=== PATIENT | female | born 1950 | race African-American/Black ===

== ENCOUNTER → 2016-08-20 | Outpatient (CLI) | payer OTHER ==
[2015-08-04 11:21] VITALS: BP 142/46
[~2016-08-20] MED LIST: CYCL10TA2 PO; HYDR-2762 PO; MELO-150 PO; VALS40TA2 PO
--- NOTE | 2016-08-20 23:50 | PN ---
DATE: 08/20/2016 Progress note for pain clinic. DIAGNOSES: Lumbar radiculopathy, lumbar spinal stenosis and lumbar spondylosis. HISTORY OF PRESENT ILLNESS: The patient is a 66-year-old female who returns for followup status post lumbar epidural steroid injections x 3, last was 05/07/2016. The patient did very well with about 60% improvement. Overall, the pain is returning now in the low back and right lower extremity as it was previously. She reports difficult to stand for long periods of time greater than 20-30 minutes, worse with ambulation, standing, walking, has to sit down, when the pain is at its worse and does relieve the pain fairly quickly within few minutes. The patient reports she has been sleeping okay, but awakens occasionally. She recently had a sore throat and cold and reports that she has had a fever every night for the past 3 days and is seeing her primary care physician later today to see about some antibiotics. The patient reports otherwise doing fairly well, significant pain in the right leg, mostly in the posterior aspect of the lateral thigh, posterior thigh, posterior lower leg, lateral lower leg to the ankle with cramping as well. The patient reports no new motor or sensory deficits, no new bowel or bladder incontinence or other complaints. PHYSICAL EXAMINATION: VITAL SIGNS: The patient's blood pressure is 138/78, pulse 70, respirations 18, temperature is 98.1 degrees Fahrenheit, height is 5 feet 8 inches, weighs 185 pounds. GENERAL: The patient is awake, alert, oriented, appropriate, very pleasant demeanor. HEENT: Head shows normocephalic, atraumatic. Extraocular movements are intact and symmetrical. Oral cavity, mucous membranes are moist and pink. Dentition is intact. NECK: Shows anterior throat supple without palpable lymphadenopathy noted. Swallow reflex is symmetrical. NECK: Shows full rotational motion of the cervical spine without tenderness or difficulty. The patient's back shows spine grossly midline. Normal appearing thoracic kyphosis and lumbar lordotic curvature. Lumbar paraspinous muscle shows some prlr-su-ivdnsxyh tenderness with palpation, but only diffusely throughout the lumbar distribution bilaterally in the mid and lower lumbar distribution. No tenderness over the sacrum or sacroiliac regions. The patient shows good rotation and motion of lumbar spine laterally as well as extension and flexion. EXTREMITIES: Lower extremities show deep tendon reflexes 2+ in the patellar and tendo calcaneus tendons are 1+. Motor exam is strong with 5/5 dorsiflexion, extension and equal. Options were discussed with the patient. We will hold on any further injections at this time as the patient has had some febrile episodes for the past 3 days. We will have her follow up with her primary care physician as she is scheduled later today ____ so once she is afebrile and is treated with antibiotics if necessary. We will have her return for potential lumbar epidural steroid injection at that time. Also, we will try Medrol Dosepak, in the meantime, the patient was given instruction as well as side effects to be aware with medication and will follow up approximately one week. NIGHAT CROWLEY MD DR: RONAL/fernanda JOB#: [id number] / [id number]
== END | disposition home or self-care (01) ==
LOC: PNCL 10:03
PROVIDERS: ATTEND Anesthesiology
DX: M54.16 Radiculopathy, lumbar region (principal); M48.06 Spinal stenosis, lumbar region; M47.896 Other spondylosis, lumbar region
CPT/HCPCS: 99212

== ENCOUNTER → 2016-09-03 | Outpatient (CLI) | payer MEDICARE, OTHER ==
[2015-08-04 11:21] VITALS: BP 142/46
--- NOTE | 2016-09-03 12:31 | KCIC ---
Bilateral digital screening mammograms with CAD: HISTORY Routine screening. COMPARISON Comparison is made to previous study dated 08/22/2014. FINDINGS Breast density category B. The skin and nipples show no abnormalities. No abnormal lymph nodes are seen in the axilla. The breast parenchyma shows scattered fibroglandular density. There continues to be some asymmetric density on the right which is unchanged. There are no new dominant masses, suspicious calcifications or architectural distortions. IMPRESSION No evidence of malignancy. Recommend routine annual mammographic screening. This study was interpreted with the benefit of Computerized Aided Detection (CAD). Mammography is not 100% sensitive in detecting breast cancer. Therefore, a self breast exam and a clinical breast exam are very important. A negative mammogram does not negate a clinically suspicious finding and should not result in a delay in biopsying a clinically suspicious abnormality. BI-RADS category 2: Benign. This patient's information has been entered into a reminder system for the patient to be notified with the results of this examination and a target date for her next mammograms. Electronically signed by: Lisa Montague MD (Sep 03, 2016 12:29:58)
--- NOTE | 2016-09-03 12:52 | KCIC ---
PROCEDURE MR of the right shoulder HISTORY Right shoulder pain for about 3 months. TECHNIQUE Standard routine multiplanar sequences are obtained. COMPARISON FINDINGS The acromioclavicular joint is degenerative, with small undersurface osteophytes. Evidence of prior rotator cuff repair with humeral head screws. There is diffuse heterogeneity and thinning of the rotator cuff, may be related to the affects of surgery of the nature of reattachment. There is no evidence of a measurable through and through full-thickness recurrent rupture. Subscapularis tendinosis with mild partial tearing. Mild rotator cuff muscle volume loss with mild to moderate fatty infiltration. Small glenohumeral joint effusion. Moderate glenohumeral joint chondromalacia. The mild subchondral marrow edema appears reactive. The proximal biceps tendon is poorly visualized. No evidence of a bone lesion or acute fracture. No acute soft tissue injury. Degeneration and tearing of the entire labrum. IMPRESSION 1. Diffuse rotator cuff thinning and irregularity, but no evidence of a recurrent through and through supraspinatus or infraspinatus tendon rupture. Subscapularis tendinosis with mild partial tearing. 2. Moderate primary osteoarthritis. 3. Poorly visualized biceps tendon. 4. Circumferential degenerative tearing of the labrum. Electronically signed by: Harry Mosqueda MD (Sep 03, 2016 12:51:17)
== END | disposition home or self-care (01) ==
LOC: KCIC MAMMO 10:30
PROVIDERS: ATTEND Family Medicine
DX: Z12.31 Encounter for screening mammogram for malignant neoplasm of breast (principal); S43.401A Unspecified sprain of right shoulder joint, initial encounter; W19.XXXA Unspecified fall, initial encounter; Y93.89 Activity, other specified; Y92.89 Other specified places as the place of occurrence of the external cause; Y99.8 Other external cause status; M19.011 Primary osteoarthritis, right shoulder
CPT/HCPCS: 73221; G0202; 77067

== ENCOUNTER → 2016-12-31 | Outpatient (CLI) | payer MEDICARE, OTHER ==
[2015-08-04 11:21] VITALS: BP 142/46
[~2016-12-31] MED LIST changes: -MELO-150 PO; +MELO15TA23 PO
--- NOTE | 2016-12-31 15:13 | KCIC ---
MRI brain without contrast and MRA [place] without contrast dated 12/31/2016. No comparison available. CLINICAL INDICATION: Persistent daily headaches for 3 months. Blurred vision. Hypertension. TECHNIQUE: Routine multiplanar multisequence MR imaging of brain performed without the administration of intravenous contrast. In addition, 3-D vhfb-za-gxbsar MRA [place] was acquired with 3-D rotational reconstructions. FINDINGS: Ventricles and sulci are within normal limits for age. No midline shift or mass effect. Mild spotty hyperintense FLAIR signal abnormality within the deep/subcortical periventricular white matter and left esdras. No hemorrhage or extra-axial collection. Posterior fossa and brainstem unremarkable. No evidence of restricted diffusion abnormality. Major intracranial flow-voids are present. Postcontrast imaging was not performed. There is complete opacification of the left maxillary sinus. Mild mucosal thickening of the ethmoid air cells. The visualized paranasal sinuses and mastoid air cells are otherwise clear. No apparent calvarial abnormality. Internal carotid arteries at the skull base are symmetric in size and signal. Petrous and cavernous segments are symmetric. Carotid termini and supraclinoid segments are patent. The JESSIKA and MCA branches are well formed. No stenosis or aneurysm. Intradural vertebral arteries are patent. The basilar artery is somewhat small. There is near origin of the bilateral [employer]INICAL FACULTY. No stenosis or aneurysm. Impression brain: 1. No evidence of acute intracranial hemorrhage, mass or acute infarct. 2. Mild spotty signal abnormality in the deep/subcortical periventricular white matter and left esdras, nonspecific but likely related to chronic small vessel ischemic disease. 3. Mild sinus mucosal thickening with complete opacification of the left maxillary sinus, possibly related to inspissated secretions. An intrasinus mass cannot be completely excluded. Recommend clinical correlation. Impression MRA [place]: 1. No evidence of hemodynamically significant stenosis or aneurysm. 2. Near origin of the bilateral CLINICAL FACULTY. Electronically signed by: Harry Jones MD (12/31/2016 3:09 PM) [facility]
--- NOTE | 2016-12-31 15:13 | KCIC ---
MRI brain without contrast and MRA [place] without contrast dated 12/31/2016. No comparison available. CLINICAL INDICATION: Persistent daily headaches for 3 months. Blurred vision. Hypertension. TECHNIQUE: Routine multiplanar multisequence MR imaging of brain performed without the administration of intravenous contrast. In addition, 3-D cwtc-bu-dnmqpe MRA [place] was acquired with 3-D rotational reconstructions. FINDINGS: Ventricles and sulci are within normal limits for age. No midline shift or mass effect. Mild spotty hyperintense FLAIR signal abnormality within the deep/subcortical periventricular white matter and left esdras. No hemorrhage or extra-axial collection. Posterior fossa and brainstem unremarkable. No evidence of restricted diffusion abnormality. Major intracranial flow-voids are present. Postcontrast imaging was not performed. There is complete opacification of the left maxillary sinus. Mild mucosal thickening of the ethmoid air cells. The visualized paranasal sinuses and mastoid air cells are otherwise clear. No apparent calvarial abnormality. Internal carotid arteries at the skull base are symmetric in size and signal. Petrous and cavernous segments are symmetric. Carotid termini and supraclinoid segments are patent. The JESSIKA and MCA branches are well formed. No stenosis or aneurysm. Intradural vertebral arteries are patent. The basilar artery is somewhat small. There is near origin of the bilateral [employer]. No stenosis or aneurysm. Impression brain: 1. No evidence of acute intracranial hemorrhage, mass or acute infarct. 2. Mild spotty signal abnormality in the deep/subcortical periventricular white matter and left esdras, nonspecific but likely related to chronic small vessel ischemic disease. 3. Mild sinus mucosal thickening with complete opacification of the left maxillary sinus, possibly related to inspissated secretions. An intrasinus mass cannot be completely excluded. Recommend clinical correlation. Impression MRA [place]: 1. No evidence of hemodynamically significant stenosis or aneurysm. 2. Near origin of the bilateral [employer]. Electronically signed by: Harry Jones MD (12/31/2016 3:09 PM) [facility]-KC[facility]2
== END | disposition home or self-care (01) ==
LOC: KCIC MRI 13:36
PROVIDERS: ATTEND Family Medicine
DX: H53.8 Other visual disturbances (principal); I10 Essential (primary) hypertension; R51 Headache
CPT/HCPCS: 70544; 70551

== ENCOUNTER → 2017-09-29 | Outpatient (CLI) | payer MEDICARE, OTHER | END | disposition home or self-care (01) | LOC: PNCL 10:40 | DX: M54.16 Radiculopathy, lumbar region (principal); M48.061 Spinal stenosis, lumbar region without neurogenic claudication; M47.896 Other spondylosis, lumbar region; Z87.891 Personal history of nicotine dependence | CPT/HCPCS: G0463 ==

== ENCOUNTER → 2017-10-01 | Outpatient (CLI) | payer MEDICARE, OTHER ==
[2017-10-01 12:54] LABS: ADD MAN DIFF? NO
[2017-10-01 13:02] LABS: BASO # 0.1 x10^3/uL (0.0-0.2); BASO % 1 % (0-3); EOS # 0.3 x10^3/uL (0.0-0.7); EOS % 5 % (0-3); HEMOGLOBIN 11.5 g/dL (12.0-15.5); LYMPH # 1.7 x10^3/uL (1.0-4.8); LYMPH % 32 % (24-48); MEAN CORPUSCULAR HEMOGLOBIN 29 pg (25-35); MEAN CORPUSCULAR HGB CONC 34 g/dL (31-37); MEAN CORPUSCULAR VOLUME 85 fL (79-100); MONO # 0.5 x10^3/uL (0.0-1.1); MONO % 9 % (0-9); NEUT # 2.9 x10^3uL (1.8-7.7); NEUT % 54 % (31-73); PLATELET COUNT 219 x10^3/uL (140-400); RED BLOOD COUNT 4.02 x10^6/uL (3.50-5.40); WHITE BLOOD COUNT 5.4 x10^3/uL (4.0-11.0)
[2017-10-01 13:11] LABS: ALBUMIN 3.7 g/dL (3.4-5.0); ANION GAP 8 (6-14); BLOOD UREA NITROGEN 20 mg/dL (7-20); CALCIUM 9.4 mg/dL (8.5-10.1); CARBON DIOXIDE 27 mmol/L (21-32); CHLORIDE 102 mmol/L (98-107); GFR 67.1; GLUCOSE 100 mg/dL (70-99); POTASSIUM 3.5 mmol/L (3.5-5.1); SODIUM 137 mmol/L (136-145)
[2017-10-01 13:12] LABS: PARTIAL THROMBOPLASTIN TIME 30 SEC (24-38); PROTHROMBIN TIME PATIENT 12.7 SEC (11.7-14.0)
[2017-10-01 13:39] LABS: BILIRUBIN,URINE NEGATIVE (NEG); CLARITY,URINE CLEAR; COLOR,URINE YELLOW; GLUCOSE,URINE NEGATIVE (NEG); NITRITE,URINE NEGATIVE (NEG); PROTEIN,URINE NEGATIVE (NEG-TRACE)
[2017-10-01 13:54] LABS: BACTERIA,URINE FEW /HPF (0-FEW); HYALINE CASTS, URINE FEW /HPF; RBC,URINE 0 /HPF (0-2); SQUAMOUS EPITHELIAL CELL,UR FEW /LPF
[2017-10-01 14:06] LABS: SEDIMENTATION RATE 35 (0-25)
[2017-10-01 22:17] LABS: MRSA BY PCR Negative (Negative)
== END | disposition home or self-care (01) ==
LOC: SURGPAT 12:12
DX: Z01.818 Encounter for other preprocedural examination (principal); I10 Essential (primary) hypertension; R94.31 Abnormal electrocardiogram [ECG] [EKG]; Z96.651 Presence of right artificial knee joint; Z79.01 Long term (current) use of anticoagulants
CPT/HCPCS: 36415; 71046; 80048; 81001; 82040; 82306; 85025; 85610; 85651; 85730; 87086; 87641; 93005

== ENCOUNTER → 2017-10-27 | Outpatient (CLI) | payer MEDICARE, OTHER | END | disposition home or self-care (01) | LOC: KCIC MRI 13:06 | DX: M54.16 Radiculopathy, lumbar region (principal); M48.061 Spinal stenosis, lumbar region without neurogenic claudication; M43.16 Spondylolisthesis, lumbar region | CPT/HCPCS: 72148 ==

== ENCOUNTER → 2017-12-08 | Outpatient (CLI) | payer MEDICARE, OTHER ==
[~2017-12-08] MED LIST changes: -CYCL10TA2 PO; -HYDR-2762 PO; +IOHEXOL 180 MG/ML 10 ML VIAL.; +LIDOCAINE 1% PF 2 ML VIAL.; -MELO15TA23 PO; -VALS40TA2 PO; +methylPREDNISolone ACETATE 40 MG/ML VIAL.; +methylPREDNISolone ACETATE 80 MG/ML VIAL.
== END | disposition home or self-care (01) ==
LOC: PNCL 10:03
DX: M48.061 Spinal stenosis, lumbar region without neurogenic claudication (principal); M47.26 Other spondylosis with radiculopathy, lumbar region; Z88.0 Allergy status to penicillin; E78.00 Pure hypercholesterolemia, unspecified; I10 Essential (primary) hypertension; Z90.710 Acquired absence of both cervix and uterus; Z90.79 Acquired absence of other genital organ(s); Z90.721 Acquired absence of ovaries, unilateral; M19.90 Unspecified osteoarthritis, unspecified site; Z96.652 Presence of left artificial knee joint; F32.9 Major depressive disorder, single episode, unspecified; F17.200 Nicotine dependence, unspecified, uncomplicated
CPT/HCPCS: 62323; J1030; J1040; Q9965

== ENCOUNTER → 2017-12-29 | Outpatient (CLI) | payer MEDICARE, OTHER ==
[~2017-12-29] MED LIST changes: -LIDOCAINE 1% PF 2 ML VIAL.; +LIDOCAINE 2% PF 2ML VIAL.
== END | disposition home or self-care (01) ==
LOC: PNCL 10:56
DX: M48.061 Spinal stenosis, lumbar region without neurogenic claudication (principal); M47.26 Other spondylosis with radiculopathy, lumbar region; Z88.0 Allergy status to penicillin; E78.00 Pure hypercholesterolemia, unspecified; I10 Essential (primary) hypertension; Z90.710 Acquired absence of both cervix and uterus; Z90.79 Acquired absence of other genital organ(s); Z90.721 Acquired absence of ovaries, unilateral; M19.90 Unspecified osteoarthritis, unspecified site; Z96.652 Presence of left artificial knee joint; F32.9 Major depressive disorder, single episode, unspecified; F17.200 Nicotine dependence, unspecified, uncomplicated; Z79.82 Long term (current) use of aspirin; Z79.899 Other long term (current) drug therapy
CPT/HCPCS: 62323; J1030; J1040; J2001; Q9965

== ENCOUNTER → 2019-03-22 | Outpatient (CLI) | payer MEDICAID, OTHER ==
[2015-08-04 11:21] VITALS: BP 142/46
[~2019-03-22] MED LIST changes: +ASPI-482 PO; +CYCL10TA2 PO; +HYDR-2765 PO; +HYDR12.58 PO; +IBUP-1007 PO; -IOHEXOL 180 MG/ML 10 ML VIAL.; -LIDOCAINE 2% PF 2ML VIAL.; +LISI-130 PO; +MELO15TA23 PO; +VALS40TA2 PO; +ZOLP5TAB5 PO; -methylPREDNISolone ACETATE 40 MG/ML VIAL.; -methylPREDNISolone ACETATE 80 MG/ML VIAL.
--- NOTE | 2019-03-22 16:07 | KCIC ---
Bilateral digital screening mammograms: Reason for examination: Routine screening. Comparison is made to previous studies dated 09/03/2016 and 08/22/2014. Interpretation was made with the benefit of CAD. The skin and nipples show no abnormalities. No abnormal axillary lymph nodes are seen. The breast parenchyma shows scattered fibroglandular density. (Breast density: Category B.) There are no dominant masses, suspicious calcifications or architectural distortions. Some benign calcifications are present. Impression: No evidence of malignancy. Recommend routine screening. BI-RADS category 2: Benign "Our facility is accredited by the [employer] Mammography Program." This patient's information has been entered into a reminder system for the patient to be notified with the results of her examination and a target date for the next mammogram. Electronically signed by: Binta Montague MD (03/22/2019 4:04 PM) [facility]
== END | disposition home or self-care (01) ==
LOC: KCIC MAMMO 15:13
PROVIDERS: ATTEND Family Medicine
DX: Z12.31 Encounter for screening mammogram for malignant neoplasm of breast (principal); N64.89 Other specified disorders of breast
CPT/HCPCS: 77067

== ENCOUNTER → 2019-06-09 | Day surgery (SDC) | payer OTHER, MEDICAID ==
[~2019-06-09] MED LIST changes: +HYDR-2868 PO; +IV RINGERS,LACTATED 1000ML 1,000 ML IV ONE; +IV RINGERS,LACTATED 1000ML 1,000 ML IV SCH; +LIDOCAINE 2% PF 5 ML VIAL. ONE; +PANT40TA77 PO; +PROPOFOL 20 ML IV ONE; +PROPOFOL 40 ML IV ONE
[2019-06-09 10:32] VITALS: BP 127/85
--- NOTE | 2019-06-09 10:43 | PREOP HP ---
DATE OF SERVICE: 06/09/2019 REQUESTING PHYSICIAN: Niya Mendieta MD PRIMARY CARE PHYSICIAN: Niya Mendieta MD REASON FOR PROCEDURE: Colorectal cancer screening and anemia. HISTORY OF PRESENT ILLNESS: This is a 68-year-old female, who presents for colorectal cancer screening. She also has a history of anemia. ALLERGIES: PENICILLIN. PAST MEDICAL HISTORY: Anxiety, reflux, breast cancer, depression. FAMILY MEDICAL HISTORY: No colon cancer. MEDICATIONS: MAR reviewed. SOCIAL HISTORY: She denies tobacco, alcohol or IV drug abuse. REVIEW OF SYSTEMS: A 13-point review of systems was done. It is positive as per HPI and otherwise negative. PHYSICAL EXAMINATION: GENERAL: She is afebrile. She is in a sinus arrhythmia that was evaluated with by a 12-lead EKG, that did not demonstrate any evidence of AFib. In general, she is a well-developed, well-nourished -[place] female, in no apparent distress. HEENT: Oropharynx is clear. CARDIOVASCULAR: S1, S2. LUNGS: Clear. ABDOMEN: Normoactive bowel sounds, soft, nontender, nondistended. EXTREMITIES: No edema. NEUROLOGIC: Awake, alert and oriented x 3. ASSESSMENT AND PLAN: 1. Colorectal cancer screening. The risks and benefits of the colonoscopy have been explained, she has agreed to proceed. 2. Reflux. An upper endoscopy for further evaluation. Thank you for allowing me to participate in the care of this patient. HERSON WOMACK MD DR: ZENAIDA/fernanda JOB#: [id number] / [id number]
--- NOTE | 2019-06-09 20:53 | EKG ---
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
--- NOTE | 2019-06-10 12:06 | PATHOLOGY ---
[facility] Accession Number: [id number] . 01 Material submitted: . PART A: small bowel - SMALL BOWEL BIOPSY PART B: stomach - GASTRIC ANTRUM/BODY BIOPSY. Modifiers: body PART C: esophagus - DISTAL ESOPHAGUS BIOPSY. Modifiers: distal PART D: colon - TRANSVERSE COLON POLYP BIOPSY. Modifiers: transverse PART E: colon - SIGMOID COLON POLYP BIOPSY. Modifiers: sigmoid . 01 Clinical history: . GERD, CRC screen . 02 Diagnosis: A. Small bowel biopsies: - No significant pathologic abnormalities. . B. Gastric biopsies, gastric body and antrum: - Chronic gastritis, mild. . C. Esophageal biopsies, distal esophagus: - Segments of gastric mucosa showing chronic inflammation and single segment of squamous esophageal mucosa identified. . D. Colon biopsies, transverse colon polyp: - Prominent mucosal fold. . E. Colon biopsies, sigmoid colon polyps: - Tubular adenoma (1). - Hyperplastic polyps. . (JPM:mmdebbi; 06/10/2019) [facility] 06/10/2019 1119 Local . 02 Comment: Sections of the small bowel biopsy reveal segments of duodenal mucosa. Where best oriented, mucosal villi show no sprue-like changes or significant inflammatory changes. . Sections of the gastric biopsy reveal segments of gastric antral and gastric body mucosa showing congestion and very mild chronic inflammation. A properly-controlled immunoperoxidase stain for Helicobacter is negative for Helicobacter organisms. . Sections of the distal esophageal biopsy reveal three segments of gastric mucosa showing mild to moderate chronic inflammation and a single segment of squamous esophageal mucosa. There is no evidence of Tobias's change, dysplasia or malignancy. . Sections of the transverse colon biopsy reveal segments of colonic mucosa consistent with prominent mucosal fold. There are no adenomatous changes or evidence of malignancy. . Sections of the sigmoid colon biopsy reveal a single tubular adenoma and multiple hyperplastic polyps. There is no high grade dysplasia or evidence of malignancy. . Special stains (B1): Immunoperoxidase stain for Helicobacter . (JPM:mml; 06/10/2019) . 02 Electronically signed: . Erlin Pappas MD, Pathologist NPI- [id number] . 01 Gross description: . A. Received in formalin labeled "Roshan, Juliann, small bowel," and additionally labeled on the requisition as "BX," are 4 segments of rodrigues soft tissue measuring 1.0 x 0.6 x 0.2 cm in aggregate dimensions and ranging from 0.4 to 0.7 cm in maximum dimension. The specimen is submitted entirely in cassette A1. . B. Received in formalin labeled "Roshan, Juliann, gastric antrum/body," and additionally labeled on the requisition as "BX," are 3 segments of rodrigues soft tissue measuring 0.9 x 0.6 x 0.3 cm in aggregate dimensions and ranging from 0.4 to 0.5 cm in maximum dimension. The specimen is submitted entirely in cassette B1. . C. Received in formalin labeled "Roshan, Juliann, distal esophagus BX," are 3 segments of rodrigues soft tissue measuring 0.6 x 0.6 x 0.2 cm in aggregate dimensions and ranging from 0.3 to 0.6 cm in maximum dimension. The specimen is submitted entirely in cassette C1. . D. Received in formalin labeled "Roshan, Juliann, transverse colon polyp," and additionally labeled on the requisition as "polyp BX," are 2 segments of rodrigues soft tissue measuring 0.8 x 0.2 x 0.2 cm in aggregate dimensions and measuring 0.4 cm each in maximum dimension. The specimen is submitted entirely in cassette D1. . E. Received in formalin labeled "Roshan, Juliann, sigmoid polyp," and additionally labeled on the requisition as "colon BX," are 9 segments of rodrigues soft tissue measuring 1.5 x 1.3 x 0.2 cm in aggregate dimensions and ranging from 0.3 to 0.4 cm in maximum dimension. The specimen is submitted entirely in cassette E1. (TSD; 06/09/2019) TOB/TOB 06/10/2019 0941 Local . 02 Pathologist provided ICD-10: K29.50, K20.9, D12.5, K63.5, K21.9 . 02 CPT . 748354, 196845, 684643, 364224, 169815, [id number] Specimen Comment: A courtesy copy of this report has been sent to [phone], [phone] Specimen Comment: [id number] Specimen Comment: Report sent to / DR CALVILLO Performed at: 01 [facility] [address] [place] [address] [address], [place] [id number] MD Aleksandar Horner MD Phone: [phone] Performed at: 02 [facility] [address] [place], [place] [id number] MD Erlin Pappas MD Phone: [phone]
== END | disposition home or self-care (01) ==
LOC: ENDOS 08:44
PROVIDERS: ATTEND Internal Medicine Gastroenterology
DX: Z12.11 Encounter for screening for malignant neoplasm of colon (principal); D12.5 Benign neoplasm of sigmoid colon; K21.0 Gastro-esophageal reflux disease with esophagitis; K29.50 Unspecified chronic gastritis without bleeding; F41.9 Anxiety disorder, unspecified; F32.9 Major depressive disorder, single episode, unspecified; D64.9 Anemia, unspecified; Z88.0 Allergy status to penicillin; Z85.3 Personal history of malignant neoplasm of breast; Z98.890 Other specified postprocedural states
CPT/HCPCS: 43239; 45380; 88305; 88342; 93005; J2001; J2704; 45378

== ENCOUNTER → 2019-11-29 | Outpatient (CLI) | payer OTHER, MEDICAID ==
[2019-06-09 10:32] VITALS: BP 127/85
[~2019-11-29] MED LIST changes: +AMLO10TA8 PO; +HYDR-2165 PO; -IV RINGERS,LACTATED 1000ML 1,000 ML IV ONE; -IV RINGERS,LACTATED 1000ML 1,000 ML IV SCH; -LIDOCAINE 2% PF 5 ML VIAL. ONE; -PROPOFOL 20 ML IV ONE; -PROPOFOL 40 ML IV ONE
[2019-11-29 14:50] LABS: BASO % 1 % (0-3); EOS # 0.2 x10^3/uL (0.0-0.7); EOS % 4 % (0-3); HEMATOCRIT 35.4 % (36.0-47.0); LYMPH # 1.3 x10^3/uL (1.0-4.8); LYMPH % 29 % (24-48); MEAN CORPUSCULAR HEMOGLOBIN 31 pg (25-35); MEAN CORPUSCULAR HGB CONC 34 g/dL (31-37); MEAN CORPUSCULAR VOLUME 91 fL (79-100); MONO # 0.4 x10^3/uL (0.0-1.1); MONO % 9 % (0-9); NEUT # 2.7 x10^3/uL (1.8-7.7); NEUT % 58 % (31-73); PLATELET COUNT 212 x10^3/uL (140-400); RED BLOOD COUNT 3.91 x10^6/uL (3.50-5.40); WHITE BLOOD COUNT 4.6 x10^3/uL (4.0-11.0)
[2019-11-29 14:58] LABS: PROTHROMBIN TIME PATIENT 12.5 SEC (11.7-14.0)
--- NOTE | 2019-11-29 17:29 | RAD ---
Chest radiograph 11/29/2019 1:49 PM INDICATION: Preoperative, right total knee arthroplasty COMPARISON: None available TECHNIQUE: Frontal and lateral views of the chest are provided. FINDINGS: The cardiomediastinal silhouette is within normal limits. There are no pleural effusions. There is no pulmonary vascular congestion. There is no pneumothorax. Atherosclerotic changes of the aorta are present. The lungs are clear. No significant osseous abnormality is identified. IMPRESSION: No acute cardiopulmonary process. Electronically signed by: Thelma Dent MD (11/29/2019 5:26 PM) [id number]
[2019-11-30 02:08] LABS: HEMOGLOBIN A1C 4.8 % (4.8-5.6)
== END ==
LOC: SURGPAT 13:34
PROVIDERS: ATTEND Orthopaedic Surgery
DX: Z01.818 Encounter for other preprocedural examination (principal); M17.11 Unilateral primary osteoarthritis, right knee
CPT/HCPCS: 36415; 71046; 83036; 85025; 85610; 85730; 87641

== ENCOUNTER → 2019-12-01 | Outpatient (CLI) | payer OTHER, MEDICAID ==
[2019-06-09 10:32] VITALS: BP 127/85
[~2019-12-01] MED LIST changes: +0.92DISP2 IV; +ASCO500T4 PO; +ASPI-630 PO; +ASPI325T11 PO; +CALC200T23 PO; +CELE200C PO; +DAPT350V IV; +DICL75TA PO; +DOCU-153 PO; +DOXY100T PO; +HYDR-2767 PO; +HYDR-2769 PO; +LACT1CAP19 PO; +MERO1VIA24 IV; +METO50TA6 PO; +MULT1TAB90 PO; +OXYC1TAB15 PO; +PANT40TA6 PO; +POLY17PO28 PO
[2019-12-01 16:02] LABS: ALBUMIN 3.7 g/dL (3.4-5.0); C-REACTIVE PROTEIN 3.3 mg/L (0-3.3); CALCIUM 8.6 mg/dL (8.5-10.1); CREATININE 0.8 mg/dL (0.6-1.0); GFR 86.3; POTASSIUM 3.6 mmol/L (3.5-5.1)
== END | disposition home or self-care (01) ==
LOC: LAB 13:59
PROVIDERS: ATTEND Orthopaedic Surgery
DX: M17.11 Unilateral primary osteoarthritis, right knee (principal); Z88.0 Allergy status to penicillin; Z88.8 Allergy status to other drugs, medicaments and biological substances
CPT/HCPCS: 36415; 80048; 82040; 82306; 86140

== ENCOUNTER → 2019-12-07 | Outpatient (CLI) | payer OTHER, MEDICAID ==
[2019-06-09 10:32] VITALS: BP 127/85
[~2019-12-07] MED LIST changes: -0.92DISP2 IV; -ASCO500T4 PO; -ASPI-630 PO; -ASPI325T11 PO; -CALC200T23 PO; -CELE200C PO; -DAPT350V IV; -DICL75TA PO; -DOCU-153 PO; -DOXY100T PO; -HYDR-2767 PO; -HYDR-2769 PO; -LACT1CAP19 PO; -MERO1VIA24 IV; -METO50TA6 PO; -MULT1TAB90 PO; -OXYC1TAB15 PO; -PANT40TA6 PO; -POLY17PO28 PO; +REGADENOSON 0.4 MG/5 ML DISP.SYRIN. IV ONE
--- NOTE | 2019-12-07 17:40 | RAD ---
MR#: [id number] Date of Study: 12/07/2019 Ordering Physician: SAMARA RIVAS, Referring Physician: MORGAN HUGHES Tech: RT Li (R) (N) APPROVED REPORT Test Type: Pharmacological Stress Nurse/Tech: Adeola Zavala RN Test Indications: Pre-op Knee surgery Cardiac History: Hypertension, stopped smoking 08/2019 Medications: See Electronic Medical Record Medical History: 75 Resting ECG: SR with PACs with inverted T waves, ST elevation in V1 & V2. Resting Heart Rate: 75 bpm Resting Blood Pressure: 145/75mmHg Pretest Chest Pain: No chest pain Nurse/Tech Notes S1S2, Lungs CTA Pharm. Details Pharmacologic stress testing was performed using 0.4mg per 5ml of regadenoson given intravenously ove r 7-10 seconds. Stress Symptoms Dyspnea, Cheat heaviness 3/10 resolved by end of test. POST EXERCISE Reason for Termination: Infusion complete Max HR: 106 bpm Max Blood Pressure: 142/78mmHg Blood Pressure response to exercise: Normal blood pressure response during stress. Heart Rate response to exercise: WNL Chest Pain: Yes. Heaviness 3/10, resolved by end of test. Arrhythmia: No. ST Change: Yes. Non-specific INTERPRETATION Stress EKG Conclusion: No significant EKG changes to suggest ischemia. Imaging Protocol IMAGE PROTOCOL: Rest Tc-99m/stress Tc-99m 1 day Rest: Stress: Viability: Radiopharm.Tc99m WtkxnheluZb61x Sestamibi Qznk89oAi 31.2mCi Duration 13min. 13min. Img Date 12/07/2019 12/07/2019 Inj-Img Bbrx21hgp. 60min. Rest Admin Site:IV - Right AntecubitalAdministrator:RT Bernardo (R)(N) Stress Admin Site: IV - Right AntecubitalAdministrator: RT Li (R)(N) STRESS DATA End Diast. Vol.115.0mlLVEDV index BSA59.0ml End Syst. Vol.66.0mlLVESV index BSA34.0ml Myocardial Wrrn715.0gEject. Yhyybztq35.0% Stress Scores Regional WT3.00Summed WT24.00 Regional WM0.00Summed WM15.00 LV Perfusion Normal perfusion at stress/rest. Wall Motion Mild to moderate LV dysfunction. EF 43%. LV Perf. Quant 17 Seg. SSS0.00 17 Seg. SRS2.00 17 Seg. SDS0.00 Stress Defect Extent (% LAD)0.00Rest Defect Extent (% LAD)3.10Rev. Defect Extent (% LAD)0.00 Stress Defect Extent (% LCX) 0.00Rest Defect Extent (% LCX)7.50Rev. Defect Extent (% LCX)0.00 Stress Defect Extent (% RCA)0.00Rest Defect Extent (% RCA)3.30Rev. Defect Extent (% RCA)0.00 Stress Defect Extent (% MADI)0.00Rest Defect Extent (% MADI)3.90Rev. Defect Extent (% MADI)0.00 Other Information Quality:Average Risk Assessment: Moderate Risk Conclusion 1. Abnormal resting baseline EKG due to LVH. 2. No significant ischemia on EKG at stress. 3. Normal perfusion at stress/rest. 4. Mild to moderate LV dysfunction with global hypokinesis with EF of 43%, may be related to PAC's an d insufficient gating. 5. Moderate risk study 6. Motion artifact Recommendations Consider echocardiogram for correlation of EF. Signed by : Erik Odonnell, Electronically Approved : 12/07/2019 17:39:50
== END | disposition home or self-care (01) ==
LOC: NM 10:01
PROVIDERS: ATTEND Internal Medicine Cardiovascular Disease
DX: Z01.818 Encounter for other preprocedural examination (principal); I10 Essential (primary) hypertension; Z87.891 Personal history of nicotine dependence
CPT/HCPCS: 78452; 93017; A9500; J2785

== ENCOUNTER → 2019-12-09 | Outpatient (CLI) | payer OTHER, MEDICAID ==
[2019-06-09 10:32] VITALS: BP 127/85
[~2019-12-09] MED LIST changes: -REGADENOSON 0.4 MG/5 ML DISP.SYRIN. IV ONE
== END | disposition home or self-care (01) ==
LOC: LAB 14:56
PROVIDERS: ATTEND Orthopaedic Surgery
DX: Z11.59 Encounter for screening for other viral diseases (principal)
CPT/HCPCS: U0003-CS

== ENCOUNTER 2019-12-13 08:19 | Inpatient (IN) | payer OTHER, MEDICAID ==
--- NOTE | 2019-12-12 21:19 | PDOC1 ---
History and Physical Date of Admission Date of Admission DATE: 12/12/19 TIME: 21:08 Identification/Chief Complaint Chief Complaint Right knee pain Source Source: Chart review History of Present Illness History of Present Illness Juliann has right knee osteoarthritis and is here for right total knee arthroplasty. She had left total knee arthroplasty by me on 11/26/2011. She has been using a walker due to the knee pain. Past Medical History Cardiovascular: HTN Past Surgical History Past Surgical History Last total knee arthroplasty 2009 Rotator cuff repair Hysterectomy Breast mass removal Family History Family History father mother Social History Smoke: Quit ALCOHOL: occassional Current Medications Current Medications Current Medications Morphine Sulfate 5 mg/Ketorolac Tromethamine 30 mg/Ropivacaine 60 ml/Epinephrine HCl 0.5 mg/Sodium Chloride 100 ml @ 100 mls/hr 1X ONCE INT ART ; Start at 06:00; Stop 12/13/19 at 06:59 Ondansetron HCl (Zofran) 4 mg PRN Q6HRS PRN IV NAUSEA/VOMITING; Start 12/13/19 at 07:00; Stop 12/14/19 at 06:59 Fentanyl Citrate (Fentanyl 2ml Vial) 25 mcg PRN Q5MIN PRN IV MILD PAIN 1-3; Start 12/13/19 at 07:00; Stop 12/14/19 at 06:59 Fentanyl Citrate (Fentanyl 2ml Vial) 50 mcg PRN Q5MIN PRN IV MODERATE TO SEVERE PAIN; Start 12/13/19 at 07:00; Stop 12/14/19 at 06:59 Morphine Sulfate (Morphine Sulfate) 1 mg PRN Q10MIN PRN IV SEVERE PAIN 7-10; Start 12/13/19 at 07:00; Stop 12/14/19 at 06:59 Ringer's Solution 1,000 ml @ 30 mls/hr Q24H IV ; Start 12/13/19 at 07:00; Stop 12/13/19 at 18:59 Lidocaine HCl (Xylocaine-Mpf 1% 2ml Vial) 2 ml PRN 1X PRN ID PRIOR TO IV START; Start 12/13/19 at 07:00; Stop 12/14/19 at 06:59 Hydromorphone HCl (Dilaudid) 0.5 mg PRN Q10MIN PRN IV SEV PAIN, Second choice; Start 12/13/19 at 07:00; Stop 12/14/19 at 06:59 Prochlorperazine Edisylate (Compazine) 5 mg PACU PRN PRN IV NAUSEA, MRX1; Start 12/13/19 at 07:00; Stop 12/14/19 at 06:59 Acetaminophen (Tylenol) 1,000 mg 1X PREOP PRN PO PRIOR TO PROCEDURE; Start 12/13/19 at 06:00; Stop 12/13/19 at 18:00 Clindamycin Phosphate 50 ml @ 100 mls/hr 1X PREOP PRN IV PRIOR TO PROCEDURE; Start 12/13/19 at 06:00; Stop 12/13/19 at 18:00 Tranexamic Acid 1000 mg/Sodium Chloride 60 ml @ 60 mls/hr 1X PERIOP ONCE INJ ; Start 12/13/19 at 06:00; Stop 12/13/19 at 06:59 Tranexamic Acid 1000 mg/Sodium Chloride 60 ml @ 60 mls/hr 1X PERIOP ONCE INJ ; Start 12/13/19 at 08:00; Stop 12/13/19 at 08:59 Celecoxib (CeleBREX) 400 mg ONCE ONCE PO ; Start 12/13/19 at 06:00; Stop 12/13/19 at 06:01 Active Scripts Active Reported Hydrocodone-Apap 7.5-300 (Hydrocodone Bit/Acetaminophen) 1 Each Tablet 2 Tab PO PRN Q6HRS PRN Amlodipine Besylate 10 Mg Tablet 10 Mg PO DAILY Pantoprazole Sodium (Pantoprazole Sodium) 40 Mg Tablet.dr 40 Mg PO DAILYAC Hydralazine Hcl 25 Mg Tablet 25 Mg PO QID Zolpidem Tartrate 5 Mg Tablet 1 Tab PO QHS Hydrochlorothiazide Tablet (Hydrochlorothiazide) 12.5 Mg Tablet 25 Mg PO DAILY Ibuprofen 600 Mg Tablet 600 Mg PO TID PRN PRN Allergies Allergies: Coded Allergies: Penicillins (Unverified Allergy, Intermediate, Swelling, 11/29/19) ROS General: No: Chills, Night Sweats Eyes: No Double vision HEENT: No: Visual Changes Hematological and Lymphatic: No: Blood Clots Respiratory: No: Cough, Shortness of breath, SOB with excertion Cardiovascular: No Chest Pain, No Edema Gastrointestinal: No Nausea, No Vomiting, No Diarrhea Genitourinary: No Dysuria Musculoskeletal: Yes Gait Disturbance, Yes Joint Pain Neurological: Yes Gait Disturbance Skin: No Rash Physical Exam General: Alert, Cooperative HEENT: Atraumatic Lungs: Normal air movement Heart: RRR Abdomen: Soft Extremities: Other ( The RIGHT knee shows a mildly antalgic gait. There is valgus alignment. No masses. Large effusion. Tenderness on the joint lines. Palpable osteophytes. Range of motion is 15-95 degrees. There is crepitus with range of motion, and pain at the extremes of motion. The knee is stable to varus and valgus stress without subluxation or laxity. Muscle strength is slightly weak for the quadriceps 4+/5 which may be due to pain or avoidance, and does not seem neurogenic, and the muscle tone and bulk is slightly decreased. The hamstring strength is 5/5. The skin is normal with no scars, rashes, lesions or ulcers. Light touch sensation is intact. No edema and no varicosities. Dorsalis pedis pulse is intact and capillary refill is normal) Images Images [facility] [address] [place] [address] IMAGING REPORT Signed PATIENT: JULIANN MARTINEZ ACCOUNT: [id number] : 1950 LOCATION: [facility] AGE: 68 SEX: F EXAM STATUS: REG CLI ORD. PHYSICIAN: DRAKE CANDELARIO MD REASON: PROCEDURE: KNEE STANDING BILAT AP EXAM: Bilateral knees, standing view; left knee, 2 views. HISTORY: Pain. COMPARISON: None. FINDINGS: A frontal standing view both knees and sunrise and lateral views of the left knee are obtained. There is a left knee arthroplasty in expected position. There is severe right lateral compartment spurring and mild suspected right genu valgus. There is a small left knee effusion. There is a suspected small bone island within the right medial femoral condyle. IMPRESSION: 1. Left knee arthroplasty in expected position. There is a small left knee effusion. 2. Severe lateral compartment osteoarthritis of the right knee. Electronically signed by: Laura Sylvester MD (03/24/2019 3:09 PM) [facility] DICTATED and SIGNED BY: LAURA SYLVESTER MD DATE: 03/24/19 1509 VTE Prophylaxis Ordered VTE Prophylaxis Devices: Yes VTE Pharmacological Prophylaxi: Yes Assessment/Plan Assessment/Plan She has severe osteoarthritis of her right knee. We reviewed her x-rays together and discussed the natural history of the condition as well as a variety of treatment options at her last visit. She has failed conservative treatments and is continuing to describe debilitating pain, and I recommended total knee replacement. We discussed the potential risks of infection, neurovascular injury, fracture, bleeding, blood clots, malalignment, need for revision surgery, or other potential surgical or anesthetic complications. I recommended the robotic NAVIO instrumentation and we discussed my reasoning. We also discussed postoperative treatment and expectations including dental antibiotic prophylaxis and residual numbness over the knee. All of her questions were answered and she desires to proceed with total knee replacement . She is here today for elective right total knee arthroplasty with robotic assistance. Justicifation of Admission Dx: Justifications for Admission: Justification of Admission Dx: N/A DRAKE CANDELARIO MD Dec 12, 2019 21:19
[~2019-12-13] VITALS: Ht 167.6 cm; Wt 80.7 kg
[2019-12-13] VITALS (8 sets, daily range): BP systolic 133–152; BP diastolic 67–86
[~2019-12-13 08:19] MED LIST changes: +ACETAMINOPHEN 500 MG TABLET PO PRN; +CELECOXIB 100 MG CAPSULE. PO ONE; +CLINDAMYCIN 900MG PREMIX 50 ML IV PRN; +CLINDAMYCIN PREMIX 900 MG/50 ML BAG IV ONE; +DEXAMETHASONE SOD PHOS 4 MG/ML VIAL ONE; +FAMOTIDINE 20 MG/2 ML VIAL ONE; +HYDROmorphone 2 MG/ML VIAL IV PRN; +IV RINGERS,LACTATED 1000ML 1,000 ML IV SCH; +KETOROLAC 30 MG/ML VIAL. ONE; +LIDOCAINE 1% PF 2 ML VIAL. ID PRN; +LIDOCAINE 2% PF 5 ML VIAL. ONE; +MORPHINE SULFATE 5 MG, KETOROLAC 30MG VIAL 30 MG, ROPIVacaine 0.5% PF 60 ML, EPINEPHrin... INT ART ONE; +ONDANSETRON PF 4 MG/2 ML VIAL. IV PRN; +ONDANSETRON PF 4 MG/2 ML VIAL. ONE; +PHENYLEPHRINE in 0.9% NACL PF 1 MG/10 ML SYRINGE. IV ONE; +PROCHLORPERAZINE 10 MG/2 ML VIAL. IV PRN; +PROPOFOL 10 MG/ML (20ML) VIAL. IV ONE; +SEVOFLURANE > 120 MINUTES. IH ONE; +TOBRAMYCIN POWDER 1.2 GM VIAL. ONE; +TRANEXAMIC ACID 1,000 MG in IV NS 50ML -- 1ST BAG INJ ONE; +TRANEXAMIC ACID 1,000 MG in IV NS 50ML -- 2ND BAG INJ ONE; +VANCOMYCIN 1 GM VIAL. ONE; +fentaNYL PF VIAL 100 MCG/2 ML VIAL IV PRN
[2019-12-13] MEDS ORDERED: VANCOMYCIN 1 GM VIAL. TP ONE (08:33)
[2019-12-13] MEDS ORDERED: TOBRAMYCIN POWDER 1.2 GM VIAL. TP ONE (08:33)
[2019-12-13] MEDS ORDERED: oxyCODONE/APAP 5/325 1 TAB TABLET PO PRN (09:15)
[2019-12-13] MEDS ORDERED: CALCIUM CARBONATE 500 MG TAB.CHEW PO PRN (09:15)
[2019-12-13] MEDS ORDERED: fentaNYL PF VIAL 100 MCG/2 ML VIAL IVP PRN ×2 (09:15)
[2019-12-13] MEDS ORDERED: METOCLOPRAMIDE HCL 10 MG/2 ML VIAL. IVP PRN (09:15)
[2019-12-13] MEDS ORDERED: 0.9 % SODIUM CHLORIDE 10 ML DISP.SYRIN. IV PRN (09:15)
[2019-12-13] MEDS ORDERED: ZOLPIDEM 5 MG TABLET. PO PRN (09:15)
[2019-12-13] MEDS ORDERED: PROCHLORPERAZINE 5 MG TABLET. PO PRN (09:15)
[2019-12-13] MEDS ORDERED: MORPHINE SULFATE 4 MG/ML VIAL. IVP PRN (09:15)
[2019-12-13] MEDS ORDERED: DEXTROSE 50% 25 GM / 50ML DISP.SYRIN. IV PRN (09:15)
[2019-12-13] MEDS ORDERED: fentaNYL PF VIAL 100 MCG/2 ML VIAL ONE ×3 (09:19→10:05)
--- NOTE | 2019-12-13 09:21 | PDOC4 ---
Operative Note Operative Note Date of Procedure: December 13, 2019 Pre-Op Diagnosis: Unilateral primary osteoarthritis, right knee. M17.11 Post-Op Diagnosis: same Procedure: right total knee arthroplasty with patella resurfacing, robotic assisted, CPT 53208 Surgeon: Drake Boss MD Pig Iron Loader: PASHA Munroe Anesthesia: General EBL: 50 mL Specimens Obtained: right knee bone and soft tissue Complications: none Drains: Hemovac plus pain catheter Tourniquet time: 60 Minutes Tourniquet Pressure: 300 mm Hg Indications for Procedure: Knee arthritis pain, affecting quality of life, unrelieved by nonoperative management Findings: Severe osteoarthritis with bone on bone contact laterally, with full thickness cartilage loss medially and at the patellofemoral joint Implants: Clark [employer] Nephew Journey II Total Knee System, Size 3 right bicruciate stabilized Journey II BCS Oxinium femoral component, size 3 right Journey nonporous tibial baseplate, size 3-4 13 mm right Journey II BCS XLPE articular insert, 32 mm oval Mercedes II resurfacing patellar component Procedure in Detail: The patient was identified in the preoperative holding area, and the correct right lower extremity was marked by me. The patient was taken to the operating room where the patient was anesthetized by the Department of Anesthesia. Preo perative antibiotics were given intravenously. Tranexamic acid 1 g was given intravenously for intraoperative hemostasis. A "time-out" procedure was performed. The patient was positioned supine on the operative table with a tourniquet on the upper right thigh. A right hip bump and heel bump were attached to the operating table for later intraoperative positioning. The right lower limb was thoroughly scrubbed, then sterile Chloraprep solution was applied, and the limb was draped in sterile fashion. The operating team wore exhaust ventilated hoods with Mondokio Personal Protection Toga Zippered Peel-Away protection system. An impervious stockinet and an adhesive drape were used such that the skin was entirely covered. The limb was exsanguinated with an Esmarch bandage, and the tourniquet was inflated. A midline skin incision was made with a scalpel using the patella and tibial tubercle as landmarks. Electrocautery was used for hemostasis. My assistant attorney general used rake retractors and a laparotomy sponge. A medial parapatellar arthrotomy incision was used with extension into the distal quadriceps tendon. The patella was retracted laterally and Hohmann retractors were now used by my assistant attorney general. Excess synovium, the menisci, and the cruciate ligaments were resected sharply. A periarticular multimodal ropivacaine anesthetic injection was used in the suprapatellar pouch and distal quadriceps muscle. The patella was everted and exposed. The patella thickness was measured with a caliper, and then cut freehand with a saw, using caliper measurements to assess the resection. The lateral retinaculum was partially released from the lateral patella using electrocautery. Rongeurs were used to make sure there were no remaining exposed patellar osteophytes medially or laterally. The patella was sized, and then drilled for an oval three-peg patella component. The tibial tracker array for the NAVIO system was applied to the tibial crest four finger breadths below the tibial tubercle, using percutaneous incisions and bicortical pins. The femoral tracker array was applied outside of the original incision using two separate stab incisions using bicortical pins. Checkpoint verification pins were applied to the femur and tibia. Using the point probe, the medial and lateral malleoli were localized and the locations were stored. The center of the tibia was noted at the anterior cruciate ligament insertion and stored. The center of the femur was marked at the intersection of Whitesidess line with the transepicondylar axis. The hip center calculation was performed with range of motion of the hip. The femur neutral position was identified, and simulated weightbearing was performed with axial compression on the foot. Range of motion without stress was performed and the data collected. Range of motion with valgus stress, and range of motion with varus stress data collection was also performed. Rotational references include the Whitesidess line, and the trans-epicondylar axis. The femoral articular surface was now mapped in 3 dimensions using the point probe and digital data collected. The tibial condyle articular surfaces and cortical edges were mapped in 3 dimensions using the point probe including the medial and lateral tibial plateau. Implant planning was now performed on-screen with manipulation of the implant sizes, cut thicknesses and gaps, component rotation, component flexion/extension and component varus/valgus until satisfactory ligament balance, alignment and stability of the knee was expected throughout the range of motion. My assistant attorney general held a Hohmann retractor, a medial Z-retractor, and an [place] retractor to protect the medial and lateral collateral ligaments, the patellar tendon, the skin and the other soft tissues. The point probe was used to confirm the location of the checkpoint verification pins. The distal femoral surface was now prepared using the Anspach abel with footpedal, and the NAVIO handpiece for bone removal to the previously planned distal femoral resection. The crosshairs at the pin locations were marked by using a mallet and the point probe for definitive location. A 5-in-1 Journey II cutting guide was then applied and the position was checked with the virtual luisa wing from the NAVIO to ensure proper placement as the pins were applied. The posterior, anterior, and all chamfer cuts were made with the oscillating saw. Excess bone was removed with an osteotome and rongeur s. The tibial cutting guide was applied, positioned using the NAVIO virtual luisa wing, and secured to the upper tibia using three pins at the previously planned location. The virtual luisa wing was used to confirm the resection depth, slope and coronal alignment. The upper tibia was cut made with an oscillating saw. My assistant attorney general held Hohmann retractors and a posterior cruciate ligament retractor to protect the medial and lateral collateral ligaments, the patellar tendon, the skin, the peroneal nerve and the other soft tissues. The upper tibia was sized with a trial baseplate. The posterior compartment was cleared of osteophytes and loose bodies. The periarticular anesthetic injection was used in the posterior compartment. The box cut for a posterior stabilized component was made. A preliminary reduction was performed with a trial femur, trial tibial baseplate and trial polyethylene. The NAVIO system was used to confirm range of motion, and postoperative stressed gap assessment. No additional releases were required. The stability was assessed using different thicknesses of tibial articular surface to find satisfactory stability and good range of motion. The rotation of the tibial component was marked on the upper tibia. Final trial reduction was now performed verifying patella tracking and tibiofemoral stability and alignment. The bone pins and tracker arrays were removed, and the checkpoint verification pins were removed. The tibia preparation was completed with a drill, saw, and fin punch at the previously noted rotation. The final implants were verified and opened. Outer gloves were changed by the operating team. Betadine lavage was used. The bone cuts were irrigated with saline using the Biotix InterPulse device and then dried with suction and laparotomy sponges. Two packages of Clark + Nephew Rally HV bone cement were mixed in powdered form with Vancomycin 1gm and Tobramycin 1.2 gm, and then vacuum-mixed with the monomer, and placed into a cement gun. The cut surfaces of the bone were thoroughly dried with suction and with laparotomy sponges for cement interdigitation. The final components were cemented into place. The knee was kept at full extension while the cement hardened, and excess cement was removed. Tranexamic acid 1 g was redosed intravenously for additional intraoperative hemostasis. The tourniquet was released, and electrocautery was used for hemostasis. A final periarticular anesthetic injection was used for pain relief. The bone pin sites on the tibial crest were closed with #3-0 Nylon sutures. A final check of [id number] and stability was made, and the polyethylene implant final size was chosen. The polyethylene implant was secured to the tibial baseplate, and the knee was reduced a final time and range of motion and stability was confirmed. Thorough irrigation was used. A pain catheter, and a 15 Fr Hemovac were inserted. Topical Vancomycin 1 gm was used during the closure. The arthrotomy was closed with interrupted [id number] #1 Vicryl suture. The arthrotomy incision was then run with #1 STRATAFIX Symmetric PDS Plus Knotless suture. The subcutaneous tissues were approximated initially with #2-0 Vicryl inverted interrupted sutures by my assistant attorney general. Next the subcuticular layer was approximated in a running fashion with #3-0 STRATAFIX suture by my assistant attorney general. The skin incision was then covered and reinforced by my assistant attorney general with Acticoat, followed by a JANET single use negative pressure wound therapy dressing Soft roll and an Jaskaran wrap were applied. Needle and sponge counts were correct. There were no apparent complications. The patient returned to the recovery room in stable condition. DRAKE BOSS MD Dec 13, 2019 09:21
[2019-12-13] MEDS ORDERED: MORPHINE SULFATE 2 MG/ML VIAL. ONE (10:06)
[2019-12-13] MEDS: MORPHINE SULFATE 2 MG/ML VIAL. IV PRN ×2 (10:11→10:27)
--- NOTE | 2019-12-13 10:47 | RAD ---
KNEE RIGHT 2V History: Reason: POST OP / Spl. Instructions: / History: Technique: 2 views right knee. Comparison: March 24, 2019 Findings: Interval right total knee arthroplasty. Small calcification along the posterior aspect of the distal femur on lateral view, new compared to prior. Expected postoperative finding subcutaneous and intra-articular gas. Knee joint effusion. Surgical drain noted. Normal alignment. Impression: 1. Interval right total knee arthroplasty. 2. Small calcified fragment along the posterior aspect of the distal femur and lateral view, may represent small fracture fragment. Electronically signed by: Sunday Robbins DO (12/13/2019 10:44 AM) [id number]
--- NOTE | 2019-12-13 11:00 | NUR ---
received from recovery. she is rating her pain an "8" and is complaining of itching. ambulated to the bathroom with assist of 2 and does well. denies nausea at this time. she has good sensation, pulses and motion. returned to bed. medicated with morphine 2mgs.
[2019-12-13] MEDS: ONDANSETRON PF 4 MG/2 ML VIAL. IVP SCH ×2 (11:16→18:00)
[2019-12-13] MEDS: MORPHINE SULFATE 2 MG/ML VIAL. IVP PRN ×2 (11:17→23:33)
[2019-12-13] MEDS: ONDANSETRON ODT 4 MG TAB.RAPDIS. PO SCH ×2 (12:00→16:55)
[2019-12-13] MEDS: diphenhydrAMINE 50 MG/ML VIAL IVP PRN ×3 (12:41→23:30)
--- NOTE | 2019-12-13 13:00 | NUR ---
continues to complain of itching. states these wipes before surgery make me itch; medicated with Benadryl pain is easing after morphine
[2019-12-13] MEDS: SENNOSIDES/DOCUSATE 8.6/50MG TABLET. PO SCH (13:26)
[2019-12-13] MEDS: CLINDAMYCIN 900MG PREMIX 50 ML IV SCH ×2 (13:26→17:01)
[2019-12-13] MEDS: hydrALAZINE 25 MG TABLET PO SCH ×2 (16:55→20:54)
[2019-12-13] MEDS: oxyCODONE/APAP 5/325 1 TAB TABLET PO PRN ×2 (16:56→21:09)
[2019-12-13] MEDS: KETOROLAC 30MG VIAL 30 MG, BUPIVACAINE MPF 0.25% 20 ML, EPINEPHrine 0.5 MG in TOTAL VOL... INT ART SCH (16:59)
[2019-12-13] MEDS: ASPIRIN ENTERIC COATED 325 MG TABLET.DR. PO SCH (20:54)
--- NOTE | 2019-12-13 23:30 | NUR ---
Benadryl SIVP given per order for C/O "itching." Morphine to be given for C/O pain.
[2019-12-14] MEDS: CLINDAMYCIN 900MG PREMIX 50 ML IV SCH (00:32)
[2019-12-14 03:04] VITALS: BP 138/81
[2019-12-14] MEDS: IV NORMAL SALINE 1000ML BAG 1,000 ML IV SCH ×2 (03:48→09:15)
[2019-12-14] MEDS: diphenhydrAMINE 50 MG/ML VIAL IVP PRN (05:35)
[2019-12-14] MEDS: KETOROLAC 30MG VIAL 30 MG, BUPIVACAINE MPF 0.25% 20 ML, EPINEPHrine 0.5 MG in TOTAL VOL... INT ART SCH (05:35)
[2019-12-14] MEDS: ONDANSETRON ODT 4 MG TAB.RAPDIS. PO SCH ×2 (05:35)
[2019-12-14] MEDS: ONDANSETRON PF 4 MG/2 ML VIAL. IVP SCH ×2 (05:35)
[2019-12-14] MEDS: oxyCODONE/APAP 5/325 1 TAB TABLET PO PRN ×2 (05:39→09:39)
[2019-12-14] MEDS: MORPHINE SULFATE 2 MG/ML VIAL. IVP PRN (05:39)
[2019-12-14] MEDS ORDERED: MAGNESIUM HYDROXIDE 2,400 MG/30 ML ORAL.SUSP. PO PRN (06:00)
[2019-12-14] MEDS: PANTOPRAZOLE 40 MG TABLET.DR. PO SCH (06:03)
[2019-12-14 06:39] VITALS: BP 150/85
[2019-12-14 08:45] VITALS: BP 107/64
[2019-12-14] MEDS: MULTIVITAMIN with MINERAL TABLET. PO SCH (08:45)
[2019-12-14] MEDS: ASPIRIN ENTERIC COATED 325 MG TABLET.DR. PO SCH ×2 (08:45→21:11)
[2019-12-14] MEDS: CELECOXIB 100 MG CAPSULE. PO SCH (08:45)
[2019-12-14] MEDS: SENNOSIDES/DOCUSATE 8.6/50MG TABLET. PO SCH (08:45)
[2019-12-14 09:36] LABS: HEMATOCRIT 32.1 % (36.0-47.0); HEMOGLOBIN 10.8 g/dL (12.0-15.5)
[2019-12-14 11:15] VITALS: BP 139/59
[2019-12-14] MEDS ORDERED: ONDANSETRON ODT 4 MG TAB.RAPDIS. PO PRN (12:00)
[2019-12-14] MEDS ORDERED: ONDANSETRON PF 4 MG/2 ML VIAL. IVP PRN (12:00)
[2019-12-14] MEDS: hydrALAZINE 25 MG TABLET PO SCH ×4 (13:00→21:14)
[2019-12-14] MEDS: hydroCHLOROthiazide 25 MG TABLET PO SCH (13:38)
[2019-12-14] MEDS: amLODIPine BESYLATE 10 MG TABLET PO SCH (13:38)
--- NOTE | 2019-12-14 13:43 | NUR ---
Held 0900 dose of hydralazine due to low bp, but gave it 1337.
[2019-12-14] MEDS ORDERED: BISACODYL 10 MG SUPP.RECT. PR PRN (16:00)
--- NOTE | 2019-12-14 16:19 | PDOC ---
PROGRESS NOTES Subjective Subjective Possible allergy to pain medications. Will switch to hydrocodone. Objective Vital Signs Vital Signs Date Time Temp Pulse Resp B/P (MAP) Pulse Ox O2 Delivery O2 Flow Rate FiO2 12/14/19 15:25 Room Air 12/14/19 13:38 74 159/82 12/14/19 11:15 97.6 16 92 97.6 12/13/19 16:00 8.0 Physical Exam Hemovac and pain catheter have been removed. Calf soft and nontender. Neurovascularly intact. The dressing is dry. Labs Laboratory Tests Test 12/14/19 08:58 Hemoglobin 10.8 g/dL (12.0-15.5) Hematocrit 32.1 % (36.0-47.0) Mean Corpuscular Hemoglobin Concent 34 g/dL (31-37) Laboratory Tests Test 12/14/19 08:58 Hemoglobin 10.8 g/dL (12.0-15.5) Hematocrit 32.1 % (36.0-47.0) Mean Corpuscular Hemoglobin Concent 34 g/dL (31-37) Imaging Report reviewed, images independently reviewed. The small posterior fragment is related to osteotome use and removal of posterior osteophytes. I do not recom mend any change to weightbearing status. [facility] [address] [facility] [place] [address] IMAGING REPORT Signed PATIENT: ELENA MARTINEZ ACCOUNT: [id number] : 1950 LOCATION: [address] [place] [address] AGE: 69 SEX: F EXAM STATUS: ADM IN ORD. PHYSICIAN: DRAKE CANDELARIO MD REASON: POST OP PROCEDURE: KNEE RIGHT 2V KNEE RIGHT 2V History: Reason: POST OP / Spl. Instructions: / History: Technique: 2 views right knee. Comparison: March 24, 2019 Findings: Interval right total knee arthroplasty. Small calcification along the posterior aspect of the distal femur on lateral view, new compared to prior. Expected postoperative finding subcutaneous and intra-articular gas. Knee joint effusion. Surgical drain noted. Normal alignment. Impression: 1. Interval right total knee arthroplasty. 2. Small calcified fragment along the posterior aspect of the distal femur and lateral view, may represent small fracture fragment. Electronically signed by: Tristan Marie DO (12/13/2019 10:44 AM) [id number] DICTATED and SIGNED BY: TRISTAN MARIE DO DATE: 12/13/19 1044 Assessment Assessment POD# 1 after TKA Postop anemia, blood loss. Drop from 12.0 to 10.8 Plan Plan of Care Doubtful that she will need a transfusion but will recheck Hgb in am. Change pain meds to Lortab 10 Likely home tomorrow. Justicifation of Admission Dx: Justifications for Admission: Justification of Admission Dx: N/A DRAKE CANDELARIO MD Dec 14, 2019 16:19
[2019-12-14] MEDS ORDERED: HYDROcodone/APAP 10/325 1 TAB TABLET PO PRN ×2 (16:30)
--- NOTE | 2019-12-14 18:06 | PATHOLOGY ---
[facility] Accession Number: [id number] . 01 Material submitted: . knee - RIGHT KNEE ARTICULATING SURFACES. Modifiers: right . 01 Clinical history: . rt knee OA . 02 Diagnosis: Fragments of bone and soft tissue, "right knee articulating surfaces joint resection": - Degeneration of cartilage consistent with degenerative joint disease. - Surrounding synovial soft tissue reveals mild chronic inflammation. . ([facility]:mm; 12/14/2019) [facility] 12/14/2019 1545 Local . 02 Electronically signed: . Wally Rocha MD, Pathologist NPI- [id number] . 01 Gross description: . The specimen is received in formalin, labeled "Roshan, Juliann, right knee articulating surfaces" and consists of multiple segments of bone including the tibial plateau with a small amount of attached yellow lobulated soft tissue measuring 11.5 x 10.0 x 2.4 cm. The meniscus is present. The articular surfaces display extensive eburnation and customer assistance representative sections are submitted in A1-A2 with A2 following decalcification. (SDY; 12/13/2019) SYU/SYU 12/13/2019 1640 Local . 02 Pathologist provided ICD-10: M65.9 . 02 CPT . 451172, [id number] Specimen Comment: A courtesy copy of this report has been sent to [phone] Specimen Comment: [id number] Specimen Comment: Report sent to / DR CALVILLO Performed at: 01 [facility] [address], [place] [id number] MD Aleksandar Horner MD Phone: [phone] Performed at: 02 [facility] [id number] MD Erlin Pappas MD Phone: [phone]
[2019-12-14 18:46] VITALS: BP 131/64
[2019-12-14] MEDS: HYDROcodone/APAP 10/325 1 TAB TABLET PO PRN (21:13)
[2019-12-15] MEDS: HYDROcodone/APAP 10/325 1 TAB TABLET PO PRN ×5 (02:31→21:44)
[2019-12-15 03:45] LABS: HEMATOCRIT 27.9 % (36.0-47.0); HEMOGLOBIN 9.3 g/dL (12.0-15.5)
[2019-12-15 06:07] VITALS: BP 114/69
[2019-12-15] MEDS: PANTOPRAZOLE 40 MG TABLET.DR. PO SCH (06:13)
--- NOTE | 2019-12-15 06:36 | NUR ---
Patient verbalized having better pain control this shift. Patient had refused ice pack throughout shift due to "It is making my leg cold and causing pain with shivering." Patient agreeable to using ice pack this am. Ice pack provided.
[2019-12-15 07:05] VITALS: BP 134/75
[2019-12-15] MEDS: hydrALAZINE 25 MG TABLET PO SCH ×4 (07:49→21:42)
[2019-12-15] MEDS: CELECOXIB 100 MG CAPSULE. PO SCH (07:49)
[2019-12-15] MEDS: ASPIRIN ENTERIC COATED 325 MG TABLET.DR. PO SCH ×2 (07:50→21:42)
[2019-12-15] MEDS: MULTIVITAMIN with MINERAL TABLET. PO SCH (07:50)
[2019-12-15] MEDS: SENNOSIDES/DOCUSATE 8.6/50MG TABLET. PO SCH (07:50)
[2019-12-15] MEDS: hydroCHLOROthiazide 25 MG TABLET PO SCH (07:50)
[2019-12-15] MEDS: amLODIPine BESYLATE 10 MG TABLET PO SCH (07:50)
--- NOTE | 2019-12-15 08:25 | PDOC ---
PROGRESS NOTES Subjective Subjective Quite a bit of pain. Took 2 hydrocodone 10s and still rating pain at a 9. Likely IV supplemental meds today. Objective Vital Signs Vital Signs Date Time Temp Pulse Resp B/P (MAP) Pulse Ox O2 Delivery O2 Flow Rate FiO2 12/15/19 07:50 Room Air 12/15/19 07:50 83 134/75 12/15/19 07:05 98.9 16 98.9 12/15/19 06:07 90 12/13/19 16:00 8.0 Physical Exam Dressing JANET dry. ROM limited. Alignment good. AROM and sensation foot without difficulty. Labs Laboratory Tests Test 12/14/19 08:58 12/15/19 03:28 Hemoglobin 10.8 g/dL (12.0-15.5) 9.3 g/dL (12.0-15.5) Hematocrit 32.1 % (36.0-47.0) 27.9 % (36.0-47.0) Mean Corpuscular Hemoglobin Concent 34 g/dL (31-37) 34 g/dL (31-37) Laboratory Tests Test 12/14/19 08:58 12/15/19 03:28 Hemoglobin 10.8 g/dL (12.0-15.5) 9.3 g/dL (12.0-15.5) Hematocrit 32.1 % (36.0-47.0) 27.9 % (36.0-47.0) Mean Corpuscular Hemoglobin Concent 34 g/dL (31-37) 34 g/dL (31-37) Assessment Assessment POD#2. HGB even lower today, 9.3. Acute blood loss anemia. Pain requiring IV meds. Plan Plan of Care Recheck Hgb again tomorrow. IV pain meds. I cannot send her home today. Discharge planning for tomorrow. Justicifation of Admission Dx: Justifications for Admission: Justification of Admission Dx: N/A DRAKE CANDELARIO MD Dec 15, 2019 08:25
--- NOTE | 2019-12-15 09:00 | NUR ---
Up in chair with leg shaking back and forth. Still rating pain at "7". Gave some fentanyl. Cont. monitor.
[2019-12-15] MEDS: IV NORMAL SALINE 1000ML BAG 1,000 ML IV SCH (09:15)
--- NOTE | 2019-12-15 12:34 | NUR ---
Attempted IV restart #22 guage left hand without success will notify nursing shell shop supervisor for assistance
[2019-12-15 16:57] VITALS: BP 129/69
[2019-12-15 19:00] VITALS: BP 143/64
[2019-12-15] MEDS ORDERED: POLYETHYLENE GLYCOL 3350 17 GM PACKET. PO PRN (19:30)
[2019-12-16] MEDS: HYDROcodone/APAP 10/325 1 TAB TABLET PO PRN ×3 (01:49→17:10)
[2019-12-16 07:00] VITALS: BP 138/63
--- NOTE | 2019-12-16 07:35 | NUR ---
Pain is much better this morning. Ambulated to bathroom with walker and voided. Return back to bed. Cont. monitor.
[2019-12-16] MEDS: CELECOXIB 100 MG CAPSULE. PO SCH (07:44)
[2019-12-16] MEDS: ASPIRIN ENTERIC COATED 325 MG TABLET.DR. PO SCH (07:45)
[2019-12-16] MEDS: PANTOPRAZOLE 40 MG TABLET.DR. PO SCH (07:45)
[2019-12-16] MEDS: SENNOSIDES/DOCUSATE 8.6/50MG TABLET. PO SCH (07:45)
[2019-12-16] MEDS: MULTIVITAMIN with MINERAL TABLET. PO SCH (07:45)
[2019-12-16] MEDS: IV NORMAL SALINE 1000ML BAG 1,000 ML IV SCH (07:47)
[2019-12-16] MEDS: amLODIPine BESYLATE 10 MG TABLET PO SCH (07:51)
[2019-12-16] MEDS: hydrALAZINE 25 MG TABLET PO SCH ×3 (07:51→17:11)
[2019-12-16] MEDS: hydroCHLOROthiazide 25 MG TABLET PO SCH (07:51)
[2019-12-16 08:26] LABS: HEMATOCRIT 30.5 % (36.0-47.0); HEMOGLOBIN 10.2 g/dL (12.0-15.5)
[2019-12-16 11:00] VITALS: BP 140/67
--- NOTE | 2019-12-16 14:48 | PDOC3 ---
Discharge Summary Visit Information Date of Admission: Dec 13, 2019 Date of Discharge: Dec 16, 2019 Admitting Diagnosis: Osteoarthritis right knee Final Diagnosis Osteoarthritis right knee Aftercare following total knee arthroplasty Acute blood loss anemia Brief Hospital Course Allergies Allergies Coded Allergies Type Severity Reaction Last Updated Verified Penicillins Allergy Intermediate Swelling 11/29/19 No Vital Signs Vital Signs Date Time Temp Pulse Resp B/P (MAP) Pulse Ox O2 Delivery O2 Flow Rate FiO2 12/16/19 11:00 98.0 79 18 140/67 (91) 96 Room Air 98.0 12/15/19 19:57 8.0 Lab Results Laboratory Tests Test 12/15/19 03:28 12/16/19 07:20 Hemoglobin 9.3 g/dL (12.0-15.5) 10.2 g/dL (12.0-15.5) Hematocrit 27.9 % (36.0-47.0) 30.5 % (36.0-47.0) Mean Corpuscular Hemoglobin Concent 34 g/dL (31-37) 34 g/dL (31-37) Laboratory Tests Test 12/16/19 07:20 Hemoglobin 10.2 g/dL (12.0-15.5) Hematocrit 30.5 % (36.0-47.0) Mean Corpuscular Hemoglobin Concent 34 g/dL (31-37) Brief Hospital Course 69 year old who presented with knee osteoarthritis, for elective total knee arthroplasty. The patient underwent robotic assisted right total knee arthroplasty under general anesthesia the day of admission. Perioperative antibiotics and DVT prophylaxis were used. The patient had postoperative anemia but her most recent hemoglobin was back up to 10.3. Postoperatively physical therapy and case management were consulted. The patient progressed and is stable for discharge. Discharge Information Condition at Discharge: Stable Follow Up: Weeks Disposition/Orders: D/C to Home w/ HH Scheduled Amlodipine Besylate (Amlodipine Besylate), 10 MG PO DAILY, (Reported) Hydralazine Hcl (Hydralazine Hcl), 25 MG PO QID, (Reported) Hydrochlorothiazide (Hydrochlorothiazide Tablet), 25 MG PO DAILY, (Reported) Pantoprazole Sodium (Pantoprazole Sodium ), 40 MG PO DAILYAC, (Reported) Zolpidem Tartrate (Zolpidem Tartrate), 1 TAB PO QHS, (Reported) Scheduled PRN Hydrocodone Bit/Acetaminophen (Hydrocodone-Apap 7.5-300), 2 TAB PO PRN Q6HRS PRN for PAIN, (Reported) Ibuprofen (Ibuprofen), 600 MG PO TID PRN PRN for INFLAMMATION, (Reported) Patient Instructions Patient Instructions Continue to weight bearing as tolerated with walker. Keep JANET dressing intact and dry. The JANET should be removed on December 19. Follow up with Dr. Boss's office as scheduled. Call for appointment unless already schedu led. Continue enteric coated aspirin 325 mg by mouth twice a day for 30 days to prevent blood clots. Justicifation of Admission Dx: Justifications for Admission: Justification of Admission Dx: N/A DRAKE BOSS MD Dec 16, 2019 14:48
--- NOTE | 2019-12-16 14:52 | SNU/HH DC ---
DISCHARGE WITH HOME HEALTH DISCHARGE INFORMATION: Discharge Date: Dec 16, 2019 Final Diagnosis: Osteoarthritis right knee Right total knee arthroplasty aftercare Acute blood loss anemia Condition on Discharge: Stable CODE STATUS: Code Status: Full HOME HEALTH: Face to Face: I certify this patient is under my care and that I, or a nurse practitioner or becca kathleen's creative assistant working with me, had a face to face encounter that meets the physician face to face encounter requirements with this patient on 12/15/2019. Medical Complications: S/P Joint Replacement RN For Eval/Treatment: No Physical Therapy For: Evalulation/Treatment Occupational Therapy For: Evaluation/Treatment Pt Meets Homebound Status: Unsteady balance w/ amb,, Limited distance walking POST DISCHARGE ORDERS: Activity Instructions for Disc: Activity as tolerated, Progressive ambulation Weight Bearing Status after Di: Full weight bearing Bathing Instructions: Shower-keep dressing dry, No Tub Bath until see Wound/Incision Care: Ice to area for comfort, Keep wound elevated, Do not change dressing Other wound/incision instructi: Remove JANET dressing 12/20/2019. Apply Steri- Strips to incision. FOLLOW-UP: Follow Up With: Dr. Boss on January 01Thursday at 2:45. [phone] TREATMENT/EQUIPMENT ORDERS: Adaptive Equipment Issued: Walker CERTIFICATION STATEMENT: Certification Statement: Certification Statement: Based on the above finding, I certify that this patient is confined to the home and needs intermittent custodial care, physical therapy and/or speech therapy, or continues to need occupational therapy.~ This patient is under my care, and I have initiated the establishment of the plan of care.~ This patient will be followed by myself or a community physician who will periodically review the plan of care. Home Meds Reported Medications Hydrocodone Bit/Acetaminophen (HYDROCODONE-APAP 7.5-300) 1 Each Tablet, 2 TAB PO PRN Q6HRS PRN for PAIN, TAB 0 Refills 11/29/19 Amlodipine Besylate (AMLODIPINE BESYLATE) 10 Mg Tablet, 10 MG PO DAILY for htn, TAB 11/29/19 Pantoprazole Sodium (PANTOPRAZOLE SODIUM ) 40 Mg Tablet.dr 40 MG PO DAILYAC for GERD, TAB 06/09/19 Hydralazine Hcl (HYDRALAZINE HCL) 25 Mg Tablet, 25 MG PO QID for htn, TAB 06/09/19 Zolpidem Tartrate (ZOLPIDEM TARTRATE) 5 Mg Tablet, 1 TAB PO QHS, #30 TAB 2 Refills 10/01/17 Hydrochlorothiazide (HYDROCHLOROTHIAZIDE TABLET) 12.5 Mg Tablet, 25 MG PO DAILY for DIURETIC, TAB 0 Refills 10/01/17 Ibuprofen (IBUPROFEN) 600 Mg Tablet, 600 MG PO TID PRN PRN for INFLAMMATION, TAB 10/01/17 DRAKE BOSS MD Dec 16, 2019 14:52
--- NOTE | 2019-12-16 16:40 | NUR ---
When removing the JANET dressing noted blisters on the edge of dressing on outer aspect of knee and also had one under the JANET dressing closed to incision line. ChloraPrep used to cleansed the incision site, 4x4's, ABD dressing applied held by stocking net. Pt didn't feel secured with stocking net holding the dressing, so nurse wrapped it with blaire wrap. Pt stated "this will keep dressing in place". Left message with Dr. Boss's office.
[2019-12-16 17:11] VITALS: BP 161/61
--- NOTE | 2019-12-16 17:15 | NUR ---
Discharged instructions given. Prescription sent to pharmacy via electronically. Answered questions and concerns. Verbalized understanding. Demonstrated on how to change dressing and gave some supplies. Pt also has a home health nurse that will see pt tomorrow. Pt discharged home accompanied by son.
[2020-02-09] MEDS ORDERED: CELE200C PO (14:55)
[2020-02-17] MEDS ORDERED: PANT40TA6 PO (22:20)
[2020-02-17] MEDS ORDERED: HYDR-2767 PO (22:20)
[2020-02-18] MEDS ORDERED: DICL75TA PO (13:27)
[2020-02-18] MEDS ORDERED: ASPI-630 PO (17:35)
== END 2019-12-16 17:15 | disposition home health service (06) | DRG 470 ==
LOC: SURG 08:19 → 4 SOUTHEST 09:15 → OBSVTOIN 12-15 12:14 → 4 NORTH 12-15 18:49
PROVIDERS: ADMIT Orthopaedic Surgery; ATTEND Orthopaedic Surgery
PROC: 8E0X0CZ Robotic Assisted Procedure of Upper Extremity, Open Approach (ICD-10-PCS; 2019-12-13)
PROC: 0SRC069 Replacement of Right Knee Joint with Oxidized Zirconium on Polyethylene Synthetic Substitute, Cemented, Open Approach (ICD-10-PCS; principal; 2019-12-13 07:10)
DX: M17.11 Unilateral primary osteoarthritis, right knee (principal); D62 Acute posthemorrhagic anemia; I10 Essential (primary) hypertension; Z96.652 Presence of left artificial knee joint; M25.462 Effusion, left knee; Z90.710 Acquired absence of both cervix and uterus; Z88.0 Allergy status to penicillin; Z87.891 Personal history of nicotine dependence
CPT/HCPCS: 36415; 73560; 85014; 85018; 86850; 86900; 86901; 88304; 88311; 99406; A7015; C1713; G0378; G0379; J0171; J1100; J1200; J1885; J2270; J2370; J2405; J2704; J2795; J3010; J3260; J3370; J3490; J7030; 97116-GP; 97150-GP; 97530-GP; 97535-GO; A4461; C1769

== ENCOUNTER → 2020-01-09 | Outpatient (CLI) | payer OTHER, MEDICAID ==
[2019-12-16 17:11] VITALS: BP 161/61
[~2020-01-09] MED LIST changes: -ACETAMINOPHEN 500 MG TABLET PO PRN; -CELECOXIB 100 MG CAPSULE. PO ONE; -CLINDAMYCIN 900MG PREMIX 50 ML IV PRN; -CLINDAMYCIN PREMIX 900 MG/50 ML BAG IV ONE; -DEXAMETHASONE SOD PHOS 4 MG/ML VIAL ONE; -FAMOTIDINE 20 MG/2 ML VIAL ONE; -HYDROmorphone 2 MG/ML VIAL IV PRN; -IV RINGERS,LACTATED 1000ML 1,000 ML IV SCH; -KETOROLAC 30 MG/ML VIAL. ONE; -LIDOCAINE 1% PF 2 ML VIAL. ID PRN; -LIDOCAINE 2% PF 5 ML VIAL. ONE; -MORPHINE SULFATE 5 MG, KETOROLAC 30MG VIAL 30 MG, ROPIVacaine 0.5% PF 60 ML, EPINEPHrin... INT ART ONE; -ONDANSETRON PF 4 MG/2 ML VIAL. IV PRN; -ONDANSETRON PF 4 MG/2 ML VIAL. ONE; -PHENYLEPHRINE in 0.9% NACL PF 1 MG/10 ML SYRINGE. IV ONE; -PROCHLORPERAZINE 10 MG/2 ML VIAL. IV PRN; -PROPOFOL 10 MG/ML (20ML) VIAL. IV ONE; -SEVOFLURANE > 120 MINUTES. IH ONE; -TOBRAMYCIN POWDER 1.2 GM VIAL. ONE; -TRANEXAMIC ACID 1,000 MG in IV NS 50ML -- 1ST BAG INJ ONE; -TRANEXAMIC ACID 1,000 MG in IV NS 50ML -- 2ND BAG INJ ONE; -VANCOMYCIN 1 GM VIAL. ONE; -fentaNYL PF VIAL 100 MCG/2 ML VIAL IV PRN
--- NOTE | 2020-01-09 15:59 | CARD ---
MR#: [id number] Date of Study: 01/09/2020 Ordering Physician: SAMARA RIVAS, Referring Physician: SAMARA RIVAS, Tech: Kailee Mccormack APPROVED REPORT EXAM: Two-dimensional and M-mode echocardiogram with Doppler and color Doppler. Other Information Quality : AverageHR: 90bpm INDICATION Pre-Op RISK FACTORS Previous smoker 2D DIMENSIONS IVSd1.0 (0.7-1.1cm)Aortic Root(2D)2.8 (2.0-3.7cm) LVDd4.6 (3.9-5.9cm)LVOT Diameter2.0 (1.8-2.4cm) PWd1.2 (0.7-1.1cm)LVDs2.8 (2.5-4.0cm) FS (%) 40.6 %SV71.1 ml LVEF(%)71.3 (>50%) Aortic Valve AoV Peak Jonathan.178.0cm/sAoV VTI30.8cm AO Peak GR.12.7mmHgLVOT Peak Jonathan.138.6cm/s LVOT VTI 22.20cmAO Mean GR.7mmHg ROSALBA (VMAX)1.61rd1GOO (VTI)2.23cm2 Mitral Valve MV E Smzrmpxa42.7cm/sMV DECEL IMTM320db MV A Bqvehupz972.2cm/sMV E Mean Gr.5mmHg MV YEV49enQ/A Ratio0.6 MVA (PHT)3.08cm2 TDI E/Lateral E'15.3E/Medial E'12.5 Pulmonary Valve PV Peak Gtvfmbdo38.1cm/sPV Peak Grad.4mmHg Tricuspid Valve TR P. Fxlwldxr834df/sRAP NNAKSTMT5zzZn TR Peak Gr.76rqIqCSWS09smNw Pulmonary Vein S1 Evfksgtx71.5cm/sD2 Wldowvuo50.0cm/s PVa nyddsaaz293wdzp LEFT VENTRICLE The left ventricle is normal size. There is borderline to mild concentric left ventricular hypertroph y. The systolic function is mildly impaired. The Ejection Fraction is 45%. There is global hypokinesi s of the left ventricle. Transmitral Doppler flow pattern is Grade I-abnormal relaxation pattern. RIGHT VENTRICLE The right ventricle is normal size. There is normal right ventricular wall thickness. The right ventr icular systolic function is normal. ATRIA The left atrium size is normal. The right atrium size is normal. The interatrial septum is intact wit h no evidence for an atrial septal defect or patent foramen ovale as noted on 2-D or Doppler imaging. AORTIC VALVE The aortic valve is normal in structure and function. Doppler and Color Flow revealed no significant aortic regurgitation. There is no significant aortic valvular stenosis. Calculated aortic valve area is 2.59 cm2 with maximum pressure gradient of 15 mmHg and mean pressure gradient of 8 mmHg. MITRAL VALVE The mitral valve is normal in structure and function. There is no evidence of mitral valve prolapse. There is no mitral valve stenosis. Doppler and Color-flow revealed trace mitral regurgitation. TRICUSPID VALVE The tricuspid valve is not well visualized. Doppler and Color Flow revealed trace tricuspid regurgita tion with an estimated PAP of 32 mmHg. There is no tricuspid valve stenosis. PULMONIC VALVE The pulmonic valve is not well visualized. Doppler and Color Flow revealed no pulmonic valvular regur gitation. There is no pulmonic valvular stenosis. GREAT VESSELS The aortic root is normal in size. The IVC is normal in size and collapses >50% with inspiration. PERICARDIAL EFFUSION There is no evidence of significant pericardial effusion. Critical Notification Critical Value: No <Conclusion> The systolic function is mildly impaired. The Ejection Fraction is 45%. There is global hypokinesis of the left ventricle. Signed by : Erik Odonnell, Electronically Approved : 01/09/2020 15:58:48
== END | disposition home or self-care (01) ==
LOC: ECHO 11:10
PROVIDERS: ATTEND Internal Medicine Cardiovascular Disease
DX: Z01.810 Encounter for preprocedural cardiovascular examination (principal); I51.7 Cardiomegaly
CPT/HCPCS: 93306

== ENCOUNTER 2020-02-10 12:07 | Day surgery (SDC) | payer OTHER, MEDICAID ==
[~2020-02-10] VITALS: Ht 167.6 cm; Wt 78.9 kg
[~2020-02-10 12:07] MED LIST changes: +CELE200C PO; +CLINDAMYCIN 900MG PREMIX 50 ML IV PRN; +HYDROmorphone 2 MG/ML VIAL IV PRN; +IV RINGERS,LACTATED 1000ML 1,000 ML IV SCH; +LIDOCAINE 1% PF 2 ML VIAL. ID PRN; +ONDANSETRON PF 4 MG/2 ML VIAL. IV PRN; +PROCHLORPERAZINE 10 MG/2 ML VIAL. IV PRN; +fentaNYL PF VIAL 100 MCG/2 ML VIAL IV PRN
[2020-02-10] MEDS ORDERED: PROPOFOL 10 MG/ML (20ML) VIAL. IV ONE (14:02)
[2020-02-10] MEDS ORDERED: LIDOCAINE 2% PF 5 ML VIAL. ONE (14:02)
[2020-02-10] MEDS ORDERED: DEXAMETHASONE SOD PHOS 4 MG/ML VIAL ONE (14:02)
[2020-02-10] MEDS ORDERED: ONDANSETRON PF 4 MG/2 ML VIAL. ONE (14:02)
[2020-02-10] MEDS ORDERED: methylPREDNISolone ACETATE 80 MG/ML VIAL. INJ STA (14:13)
[2020-02-10] MEDS ORDERED: methylPREDNISolone ACETATE 80 MG/ML VIAL. ONE (14:19)
[2020-02-10] MEDS: BUPIVACAINE-EPI 0.5%-1:200000 MPF 30 ML VIAL. ONE ×2 (14:56→14:57)
[2020-02-10] MEDS ORDERED: SEVOFLURANE 16 TO 30 MINUTES. IH ONE (15:10)
--- NOTE | 2020-02-10 15:33 | PDOC4 ---
Operative Note Operative Note Date of Procedure: February 10, 2020 Pre-Op Diagnosis: * right Knee open wound S81.001 * right shoulder pain M25.511 Post-Op Diagnosis: * right Knee open wound S81.001 * right shoulder pain M25.511 Procedure: * Right knee Wound Irrigation and Closure CPT 66463 * Right shoulder (large joint) cortisone injection CPT 19987 Surgeon: Drake Boss MD Train System Operator: PASHA Wang Anesthesia: General EBL: 20 mL Specimens Obtained: Right knee synovial fluid, sent in 2 separate specimen cups, for Gram stain, aerobic, anaerobic, fungal, and AFB. Complications: none Drains: none Tourniquet: None Findings: Benign-appearing knee joint fluid. Small open wound at the knee. Indications for Procedure: This patient is a 69 -year-old with total knee arthroplasty about 2 months ago. She had some difficulty healing the lower part of her incision, and I sent her to wound care recently. There has been more drainage, and I reassessed her wound and felt that this would best be treated by irrigation in the operating room and wound closure. I do not think she has a deep knee joint infection but I did recommend aspiration of her knee joint intraoperatively to be sent for cultures and then closure of the small open woun d. She agrees with that plan. I have previously treated her for her right shoulder, and she has had cortisone injections previously in the right shoulder. Immediately preoperatively she asked if I could inject her right shoulder under anesthetic due to recent onset of shoulder pain. Written consent was obtained for all of this and she agrees to proceed. Procedure in Detail: The patient was identified in the preoperative holding area. The correct right lower extremity was marked by me, and the right sh oulder was noted. The patient was taken to the operating room where general anesthetic was used. The patient was positioned supine on the operating table. A tourniquet was not used. Preoperative antibiotics were given intravenously. A timeout procedure was performed. The right shoulder was first prepared with ChloraPrep, and then the right shoulder subacromial bursa was injected with 80 mg of Depo-Medrol and 1 mL of 0.5% bupivacaine with epinephrine, using a 22-gauge needle. The right lower limb was prepared with Betadine scrub and paint, and then draped circumferentially. An impervious stockinette was used over the lower limb. A 16-gauge needle and a 10 mL syringe were used to aspirate the knee joint. There was about 8 or 9 cc of fluid, could I could not quite fill up the 10 mL syringe. The fluid appears benign, pale yellow with a slight pink tinge, and nearly transparent, without any turbidity. This fluid was sent for cultures as above. Next the open wound on the upper tibia and tibial tubercle region was debrided with a 10 blade scalpel along the skin edges. Sharp dissection was used through the skin and subcutaneous tissue and I excised a small amount skin and subcutaneous tissue related to the open wound. I could palpate along the medial aspect of the knee joint and along the patellar tendon and medial retinacular repair. There does not seem to be any deep infection, but the open wound is very close to the joint. I irrigated with 1 L of Bactisure solution including the open wound and along the medial retinacular repair. I follow this by saline irrigation 1500 mL's. Outer gloves were changed. Bovie electrocautery was used for hemostasis. The skin edges were injected with 30 mL's of 0.5% bupivacaine with epinephrine. Final saline irrigation was used. The deep subcutaneous tissue was reapproximated with #0 Vicryl sutures by me. My curriculum assistant completed the closure with #2-0 Vicryl inverted interrupted subcuticular sutures, and with 3-0 Prolene interrupted skin sutures. DRAKE BOSS MD Feb 10, 2020 15:33
--- NOTE | 2020-02-10 15:36 | PDOC1 ---
History and Physical Date of Admission Date of Admission DATE: 02/10/20 TIME: 15:34 Identification/Chief Complaint Chief Complaint Right knee open wound Source Source: Chart review, Patient History of Present Illness History of Present Illness This 69-year-old woman had right knee arthroplasty a couple of months ago. She has had some problem with the very distal portion of her incision which had wound care recently. There has been increasing drainage and I recommended irrigation and debridement in the operating room. She agreed and is here for that procedure. She also immediately preoperatively said that her right shoulder has become painful recently. I have previously treated this both with surgery and with cortisone injection. She requested another injection which would be reasonable to do under anesthesia Past Medical History Cardiovascular: HTN Social History Smoke: Quit ALCOHOL: occassional Current Medications Current Medications Current Medications Ondansetron HCl (Zofran) 4 mg PRN Q6HRS PRN IV NAUSEA/VOMITING; Start 02/10/20 at 07:00; Stop 02/11/20 at 06:59 Fentanyl Citrate (Fentanyl 2ml Vial) 25 mcg PRN Q5MIN PRN IV MILD PAIN 1-3; Start 02/10/20 at 07:00; Stop 02/10/20 at 20:00 Fentanyl Citrate (Fentanyl 2ml Vial) 50 mcg PRN Q5MIN PRN IV MODERATE TO SEVERE PAIN; Start 02/10/20 at 07:00; Stop 02/10/20 at 20:00 Morphine Sulfate (Morphine Sulfate) 1 mg PRN Q10MIN PRN IV SEVERE PAIN 7-10; Start 02/10/20 at 07:00; Stop 02/10/20 at 20:00 Ringer's Solution 1,000 ml @ 30 mls/hr Q24H IV Last administered on 02/10/20at 13:16; Start 02/10/20 at 07:00; Stop 02/10/20 at 18:59 Lidocaine HCl (Xylocaine-Mpf 1% 2ml Vial) 2 ml PRN 1X PRN ID PRIOR TO IV START; Start 02/10/20 at 07:00; Stop 02/10/20 at 20:00 Hydromorphone HCl (Dilaudid) 0.5 mg PRN Q10MIN PRN IV SEV PAIN, Second choice; Start 02/10/20 at 07:00; Stop 02/10/20 at 20:00 Prochlorperazine Edisylate (Compazine) 5 mg PACU PRN PRN IV NAUSEA, MRX1; Start 02/10/20 at 07:00; Stop 02/10/20 at 20:00 Clindamycin Phosphate 50 ml @ 100 mls/hr 1X PREOP PRN IV PRIOR TO PROCEDURE Last administered on 02/10/20at 14:30; Start 02/10/20 at 12:00; Stop 02/11/20 at 11:59 Propofol (Diprivan) 200 mg STK-MED ONCE IV ; Start 02/10/20 at 14:02; Stop 02/10/20 at 14:02; Status DC Dexamethasone Sodium Phosphate (Decadron) 4 mg STK-MED ONCE .ROUTE ; Start 02/10/20 at 14:02; Stop 02/10/20 at 14:02; Status DC Lidocaine HCl (Lidocaine Pf 2% Vial) 5 ml STK-MED ONCE .ROUTE ; Start 02/10/20 at 14:02; Stop 02/10/20 at 14:02; Status DC Ondansetron HCl (Zofran) 4 mg STK-MED ONCE .ROUTE ; Start 02/10/20 at 14:02; Stop 02/10/20 at 14:02; Status DC Methylprednisolone Acetate (DEPO-Medrol 80MG VIAL) 80 mg ONCE STAT INJ ; Start 02/10/20 at 14:13; Stop 02/10/20 at 14:17; Status DC Bupivacaine HCl/ Epinephrine Bitart (Sensorcain-Epi 0.5%-1:240646 Mpf) 30 ml STK-MED ONCE .ROUTE Last administered on 02/10/20at 14:57; Start 02/10/20 at 14:19; Stop 02/10/20 at 14:19; Status DC Methylprednisolone Acetate (DEPO-Medrol 80MG VIAL) 80 mg STK-MED ONCE .ROUTE Last administered on 02/10/20at 14:56; Start 02/10/20 at 14:19; Stop 02/10/20 at 14:19; Status DC Sevoflurane (Ultane) 15 ml STK-MED ONCE IH ; Start 02/10/20 at 15:10; Stop 02/10/20 at 15:10; Status DC Active Scripts Active Reported Celebrex (Celecoxib) 200 Mg Capsule 1 Cap PO DAILY Hydrocodone-Apap 7.5-300 (Hydrocodone Bit/Acetaminophen) 1 Each Tablet 2 Tab PO PRN Q6HRS PRN Amlodipine Besylate 10 Mg Tablet 10 Mg PO DAILY Pantoprazole Sodium (Pantoprazole Sodium) 40 Mg Tablet.dr 40 Mg PO DAILYAC Hydralazine Hcl 25 Mg Tablet 25 Mg PO DAILY Zolpidem Tartrate 5 Mg Tablet 1 Tab PO QHS Allergies Allergies: Coded Allergies: atenolol (Verified Allergy, Severe, SWELLING OF FACE, 02/10/20) lisinopril (Verified Allergy, Severe, SWELLING OF FACE, 02/10/20) Penicillins (Unverified Allergy, Intermediate, Swelling, 02/10/20) Physical Exam General: Alert HEENT: Atraumatic Heart: RRR Abdomen: Soft Extremities: Other (The right knee has a small open wound. There is no erythema around the open wound. There is a slight amount of serous drainage. The knee joint has a small to moderate effusion. Knee range of motion is pain- free. Distal neurovascular exam is unremarkable.) Neuro: Normal speech, Sensation intact Vitals Vitals Vital Signs Date Time Temp Pulse Resp B/P (MAP) Pulse Ox O2 Delivery O2 Flow Rate FiO2 02/10/20 13:10 97.3 98 100 97.3 02/10/20 13:09 18 176/84 Room Air Labs Labs Laboratory Tests Test 02/10/20 12:25 SARS-CoV-2 Antigen (Rapid) Negative (NEGATIVE) Laboratory Tests Test 02/10/20 12:25 SARS-CoV-2 Antigen (Rapid) Negative (NEGATIVE) VTE Prophylaxis Ordered VTE Prophylaxis Devices: Yes VTE Pharmacological Prophylaxi: Yes Assessment/Plan Assessment/Plan Open wound at the distal portion of the incision of the right knee. I do not believe there is a deep knee infection but I will aspirate the knee joint under anesthesia and send that for cultures to determine if a deep infection could be present. I also can inject her shoulder with corticosteroid which will help her recovery from the knee surgery as she will likely use a walker again postoperatively. All of her questions about surgery were answered and she desires to proceed. Justifications for Admission Other Justification DRAKE CANDELARIO MD Feb 10, 2020 15:36
[2020-02-10] MEDS ORDERED: fentaNYL PF VIAL 100 MCG/2 ML VIAL ONE (15:45)
[2020-02-10] MEDS ORDERED: MORPHINE SULFATE 2 MG/ML VIAL. ONE (15:54)
[2020-02-10] MEDS: fentaNYL PF VIAL 100 MCG/2 ML VIAL IV PRN ×2 (15:58→16:30)
[2020-02-10] MEDS: MORPHINE SULFATE 2 MG/ML VIAL. IV PRN ×2 (15:59→16:30)
[2020-02-10] MEDS ORDERED: HYDR-2769 PO (16:13)
[2020-02-10] MEDS ORDERED: DOXY100T PO (16:14)
[2020-02-10] MEDS ORDERED: HYDROcodone/APAP 10/325 1 TAB TABLET PO ONE (16:15)
[2020-02-10 16:38] VITALS: BP 166/81
== END 2020-02-10 17:22 | disposition home or self-care (01) ==
LOC: SURG 12:07
PROVIDERS: ATTEND Orthopaedic Surgery
DX: S81.001A Unspecified open wound, right knee, initial encounter (principal); Z20.828 Contact with and (suspected) exposure to other viral communicable diseases; M25.511 Pain in right shoulder; I10 Essential (primary) hypertension; K21.9 Gastro-esophageal reflux disease without esophagitis; X58.XXXA Exposure to other specified factors, initial encounter; Y93.89 Activity, other specified; Y92.89 Other specified places as the place of occurrence of the external cause; Y99.8 Other external cause status; Z88.0 Allergy status to penicillin; Z88.8 Allergy status to other drugs, medicaments and biological substances; Z79.899 Other long term (current) drug therapy; Z87.891 Personal history of nicotine dependence; Z83.3 Family history of diabetes mellitus; Z82.49 Family history of ischemic heart disease and other diseases of the circulatory system
CPT/HCPCS: 11042; 20610; 87071; 87075; 87102; 87116; 87426; A7015; J1040; J1100; J2270; J2405; J2704; J3010; J3490; U0003; A4461

== ENCOUNTER 2020-02-27 15:54 | Emergency (ER) | payer OTHER, MEDICAID ==
[~2020-02-27] VITALS: Ht 172.7 cm; Wt 81.0 kg
[~2020-02-27 15:54] MED LIST changes: +0.92DISP2 IV; +ASCO500T4 PO; +ASPI-630 PO; +ASPI325T11 PO; +CALC200T23 PO; -CLINDAMYCIN 900MG PREMIX 50 ML IV PRN; +DAPT350V IV; +DICL75TA PO; +DOCU-153 PO; +DOXY100T PO; +HYDR-2767 PO; +HYDR-2769 PO; -HYDROmorphone 2 MG/ML VIAL IV PRN; -IV RINGERS,LACTATED 1000ML 1,000 ML IV SCH; +LACT1CAP19 PO; -LIDOCAINE 1% PF 2 ML VIAL. ID PRN; +MERO1VIA24 IV; +METO50TA6 PO; +MULT1TAB90 PO; -ONDANSETRON PF 4 MG/2 ML VIAL. IV PRN; +OXYC1TAB15 PO; +PANT40TA6 PO; +POLY17PO28 PO; -PROCHLORPERAZINE 10 MG/2 ML VIAL. IV PRN; -fentaNYL PF VIAL 100 MCG/2 ML VIAL IV PRN
[2020-02-27 16:00] VITALS: BP 147/79
[2020-02-27] MEDS ORDERED: ALTEPLASE 2MG VIAL 5 MG in IV NORMAL SALINE 50ML 30 ML IV ONE (16:45)
[2020-02-27] MEDS ORDERED: ALTEPLASE 1MG SYRINGE. INT CAT ONE (17:00)
--- NOTE | 2020-02-27 17:09 | PHYS DOC ---
Past Medical History Past Medical History: Hypertension Past Surgical History: Knee Replacement Smoking Status: Former Smoker Alcohol Use: None Drug Use: None General Adult EDM: Chief Complaint: OTHER COMPLAINTS HPI: HPI: Patient is a 69 year old female who presents to the ED today to be evaluated for left upper extremity PICC line not working. Patient reports being discharged from the hospital yesterday with a PICC line that was placed on Thursday last week for IV antibiotics for right knee infection post arthroplasty in November. She states this morning the sister went to flush it but it is not working. Denies any fever. Review of Systems: Review of Systems: Constitutional: Denies fever or chills. [] skin: picc line not working Musculoskeletal: Denies back pain or joint pain. [] Integument: Reports left upper extremity PICC line not working denies rash. [] Neurologic: Denies headache, focal weakness or sensory changes. [] Psychiatric: Denies depression or anxiety. [] Heart Score: Risk Factors: Risk Factors: DM, Current or recent (<one month) smoker, HTN, HLP, family history of CAD, obesity. Risk Scores: Score 0 - 3: 2.5% MACE over next 6 weeks - Discharge Home Score 4 - 6: 20.3% MACE over next 6 weeks - Admit for Clinical Observation Score 7 - 10: 72.7% MACE over next 6 weeks - Early Invasive Strategies Current Medications: Current Medications Medications (Trade) Dose Ordered Sig/Dodie Start Time Stop Time Status Last Admin Dose Admin Alteplase, Recombinant (Cathflo For Central Catheter Clearance) 1 mg 1X ONCE 02/27/20 17:00 02/27/20 17:01 DC Alteplase, Recombinant 5 mg/ Sodium Chloride 30 ml @ 30 mls/hr 1X ONCE 02/27/20 16:45 02/27/20 17:44 UNV Allergies: Allergies: Allergies Coded Allergies Type Severity Reaction Last Updated Verified atenolol Allergy Severe SWELLING OF FACE 02/10/20 Yes lisinopril Allergy Severe SWELLING OF FACE 02/10/20 Yes Penicillins Allergy Intermediate Swelling 02/17/20 Yes Physical Exam: PE: Constitutional: Well developed, well nourished, no acute distress, non-toxic appearance. [] Skin: Warm, dry, no erythema, no rash. [] Left upper extremity with the PICC line with clean dry dressing. Nursing staff was able to flush the PICC line successfully. Patient was discharged to home. Back: No tenderness, no CVA tenderness. [] Extremities: No tenderness, no cyanosis, no clubbing, ROM intact, no edema. [] Neurologic: Alert and oriented X 3, normal motor function, normal sensory function, no focal deficits noted. [] Psychologic: Affect normal, judgement normal, mood normal. [] EKG: EKG: [] Radiology/Procedures: Radiology/Procedures: [] Course & Med Decision Making: Course & Med Decision Making Pertinent Labs and Imaging studies reviewed. (See chart for details) This is a 69-year-old female patient presenting to the ED today to be evaluated for PICC line that was not working. See HPI. Nursing staff was able to flush the PICC line successfully. Patient was sent home. Dragon Disclaimer: Dragon Disclaimer: This electronic medical record was generated, in whole or in part, using a voice recognition dictation system. Departure Departure Impression: Primary Impression: PICC (peripherally inserted central catheter) flush Disposition: 01 HOME, SELF-CARE Condition: STABLE Referrals: JOSE CALVILLO MD (PCP) follow up in 1-2 weeks DRAKE CANDELARIO MD follow up in one week Patient Instructions: PICC Home Guide Additional Instructions: Your PICC line was flushed in the emergency room. It is working. Continue antibiotics. Follow-up with your own doctors in the course of this week or next week Justicifation of Admission Dx: Justifications for Admission: Justification of Admission Dx: N/A HEIDI ALLEN APRN Feb 27, 2020 17:09
== END 2020-02-27 17:14 | disposition home or self-care (01) ==
LOC: ER 15:54
DX: M00.9 Pyogenic arthritis, unspecified (principal); I10 Essential (primary) hypertension; Z45.2 Encounter for adjustment and management of vascular access device; Z88.0 Allergy status to penicillin; Z88.6 Allergy status to analgesic agent; Z88.8 Allergy status to other drugs, medicaments and biological substances; Z98.890 Other specified postprocedural states; Z87.891 Personal history of nicotine dependence
CPT/HCPCS: 99284

== ENCOUNTER 2020-03-05 14:10 | Emergency (ER) | payer OTHER, MEDICAID ==
[~2020-03-05] VITALS: Ht 172.7 cm; Wt 80.0 kg
[2020-03-05 14:19] VITALS: BP 162/77
[2020-03-05] MEDS ORDERED: HEPARIN PF 500 UNIT/5 ML DISP.SYRIN. IVP ONE ×2 (14:32→14:33)
--- NOTE | 2020-03-05 14:33 | PHYS DOC ---
Past Medical History Past Medical History: Hypertension Past Surgical History: Knee Replacement, Other Additional Past Surgical Histo: Hardware removal RT knee 02/24/20 Smoking Status: Former Smoker Alcohol Use: None Drug Use: None General Adult EDM: Chief Complaint: OTHER COMPLAINTS HPI: HPI: Patient is a 69 year old female who presents to the ED today to be evaluated for PICC line that is not working. Patient has had the PICC line since the last week of January. She was in the ED on February 26 with the same complaint and we got the PICC line working and sent her home. Today she states they tried using it but it was not flushing. Patient denies any fever. She states she gets antibiotics 3 times a day through the PICC line for right knee infection post arthroplasty done in November 2019. Review of Systems: Review of Systems: Constitutional: Denies fever or chills. [] Eyes: Denies change in visual acuity. [] HENT: Denies nasal congestion or sore throat. [] Respiratory: Denies cough or shortness of breath. [] Cardiovascular: Denies chest pain or edema. [] GI: Denies abdominal pain, nausea, vomiting, bloody stools or diarrhea. [] : Denies dysuria. [] Musculoskeletal: Denies back pain or joint pain. [] Integument: Reports nonworking PICC line on the left upper extremity Neurologic: Denies headache, focal weakness or sensory changes. [] Psychiatric: Denies depression or anxiety. [] Heart Score: Risk Factors: Risk Factors: DM, Current or recent (<one month) smoker, HTN, HLP, family h istory of CAD, obesity. Risk Scores: Score 0 - 3: 2.5% MACE over next 6 weeks - Discharge Home Score 4 - 6: 20.3% MACE over next 6 weeks - Admit for Clinical Observation Score 7 - 10: 72.7% MACE over next 6 weeks - Early Invasive Strategies Allergies: Allergies: Allergies Coded Allergies Type Severity Reaction Last Updated Verified atenolol Allergy Severe SWELLING OF FACE 02/10/20 Yes lisinopril Allergy Severe SWELLING OF FACE 02/10/20 Yes Penicillins Allergy Intermediate Swelling 02/17/20 Yes Physical Exam: PE: Constitutional: Well developed, well nourished, no acute distress, non-toxic appearance. [] HENT: Normocephalic, atraumatic, bilateral external ears normal, oropharynx moist, no oral exudates, nose normal. [] Eyes: PERRLA, EOMI, conjunctiva normal, no discharge. [] Neck: Normal range of motion, no tenderness, supple, no stridor. [] Cardiovascular:Heart rate regular rhythm, no murmur [] Lungs & Thorax: Bilateral breath sounds clear to auscultation [] Abdomen: Bowel sounds normal, soft, no tenderness, no masses, no pulsatile masses. [] Skin: Warm, dry, no erythema, no rash. [] Left upper extremity with a power PICC line. No signs of infection around the PICC line site. Back: No tenderness, no CVA tenderness. [] Extremities: No tenderness, no cyanosis, no clubbing, ROM intact, no edema. [] Neurologic: Alert and oriented X 3, normal motor function, normal sensory function, no focal deficits noted. [] Psychologic: Affect normal, judgement normal, mood normal. [] EKG: EKG: [] Radiology/Procedures: Radiology/Procedures: [] Course & Med Decision Making: Course & Med Decision Making Pertinent Labs and Imaging studies reviewed. (See chart for details) This is a 69-year-old female patient presenting to the ED today complaining of her PICC line not working. See HPI. This is the second time patient is coming to the ED with the same complaint. Nursing staff was able to get the PICC line working, the PICC line was Heparin packed. Discharged back home. Pauline Disclaimer: Pauline Disclaimer: This electronic medical record was generated, in whole or in part, using a voice recognition dictation system. Departure Departure Impression: Primary Impression: PICC (peripherally inserted central catheter) flush Disposition: HOME, SELF-CARE Condition: STABLE Referrals: JOSE CALVILLO MD (PCP) follow up next week Patient Instructions: PICC Home Guide Additional Instructions: Continue using your PICC line as prescribed by your doctor. Follow-up with your doctor in 1 to 2 weeks HEIDI ALLEN APRN Mar 05, 2020 14:33
== END 2020-03-05 15:15 | disposition home or self-care (01) ==
LOC: ER 14:10
DX: T82.898A Other specified complication of vascular prosthetic devices, implants and grafts, initial encounter (principal); M00.9 Pyogenic arthritis, unspecified; I10 Essential (primary) hypertension; Z98.890 Other specified postprocedural states; Z87.891 Personal history of nicotine dependence; Z88.0 Allergy status to penicillin; Z88.8 Allergy status to other drugs, medicaments and biological substances; Z88.6 Allergy status to analgesic agent
CPT/HCPCS: 99283

== ENCOUNTER 2020-03-07 10:22 | Observation (INO) | payer OTHER, MEDICAID ==
[~2020-03-07] VITALS: Ht 172.7 cm; Wt 80.0 kg
[~2020-03-07 10:22] MED LIST changes: +AMLO-187 PO; -AMLO10TA8 PO; -HYDR-2165 PO; +HYDR-3070 PO
--- NOTE | 2020-03-07 11:25 | RAD ---
PORTABLE CHEST 1V History: Reason: PICC line problem / Spl. Instructions: / History: Comparison: November 29, 2019 Findings: No consolidation or pleural effusion. Mild cardiomegaly, unchanged. No pneumothorax. Glenohumeral DJD, right greater than left. Left PICC with tip projecting over the right atrium. Impression: 1. Left PICC with tip projecting over the right atrium. 2. Mild cardiomegaly Electronically signed by: Sunday Robbins DO (03/07/2020 11:22 AM) [id number]
--- NOTE | 2020-03-07 12:49 | ED.ADGEN ---
Past Medical History Past Medical History: Hypertension Additional Past Medical Histor: PICC antibiotics for knee infection Past Surgical History: Knee Replacement, Other Additional Past Surgical Histo: Hardware removal RT knee 02/24/20 Smoking Status: Former Smoker Alcohol Use: None Drug Use: None Adult General Chief Complaint Chief Complaint: UPPER EXTREMITY PAIN HPI HPI Patient is a 69 year old for evaluation of left PICC line which was placed for antibiotics. 2 days ago home health was having a difficult time flushing it and was 'rough'. Has been having mild swelling distal to line insertion and tenderness on the inside of the arm, which is worse when meds are infusing. Review of Systems Review of Systems Constitutional: Denies fever or chills. [] Eyes: Denies change in visual acuity. [] HENT: Denies nasal congestion or sore throat. [] Respiratory: Denies cough or shortness of breath. [] Cardiovascular: Denies chest pain or edema. [] GI: Denies abdominal pain, nausea, vomiting, bloody stools or diarrhea. [] : Denies dysuria. [] Musculoskeletal: Denies back pain or joint pain. Left upper arm pain [] Integument: Denies rash. [] Neurologic: Denies headache, focal weakness or sensory changes. [] Endocrine: Denies polyuria or polydipsia. [] Lymphatic: Denies swollen glands. [] Psychiatric: Denies depression or anxiety. [] Current Medications Current Medications Current Medications Medications (Trade) Dose Ordered Sig/Dodie Start Time Stop Time Status Last Admin Dose Admin Lidocaine HCl (Buffered Lidocaine 1%) 6 ml 1X ONCE 03/07/20 15:00 03/07/20 15:01 DC 03/07/20 15:02 4 ML Sodium Chloride (Normal Saline Flush) 20 ml PRN Q5MIN PRN 03/07/20 14:30 Allergies Allergies Allergies Coded Allergies Type Severity Reaction Last Updated Verified atenolol Allergy Severe SWELLING OF FACE 02/10/20 Yes lisinopril Allergy Severe SWELLING OF FACE 02/10/20 Yes Penicillins Allergy Intermediate Swelling 02/17/20 Yes Physical Exam Physical Exam Constitutional: Well developed, well nourished, no acute distress, non-toxic appearance. [] HENT: Normocephalic, atraumatic, bilateral external ears normal, oropharynx mois t, no oral exudates, nose normal. [] Eyes: PERRLA, EOMI, conjunctiva normal, no discharge. [] Neck: Normal range of motion, no tenderness, supple, no stridor. [] Cardiovascular:Heart rate regular rhythm, no murmur [] Lungs & Thorax: Bilateral breath sounds clear to auscultation [] Abdomen: Bowel sounds normal, soft, no tenderness, no masses, no pulsatile masses. [] Skin: Warm, dry, no erythema, no rash. [] Back: No tenderness, no CVA tenderness. [] Extremities: No tenderness, no cyanosis, no clubbing, ROM intact, no edema. [] Neurologic: Alert and oriented X 3, normal motor function, normal sensory function, no focal deficits noted. [] Psychologic: Affect normal, judgement normal, mood normal. [] Current Patient Data Vital Signs Vital Signs Date Time Temp Pulse Resp B/P (MAP) Pulse Ox O2 Delivery O2 Flow Rate FiO2 03/07/20 14:34 74 20 172/80 (110) 100 Room Air 03/07/20 10:30 98.9 98.9 EKG EKG Sinus arrhythmia, heart rate 67, normal axis, LVH [] Radiology/Procedures Radiology/Procedures PORTABLE CHEST 1V History: Reason: PICC line problem / Spl. Instructions: / History: Comparison: November 29, 2019 Findings: No consolidation or pleural effusion. Mild cardiomegaly, unchanged. No pneumothorax. Glenohumeral DJD, right greater than left. Left PICC with tip projecting over the right atrium. Impression: 1. Left PICC with tip projecting over the right atrium. 2. Mild cardiomegaly [] VENOUS UPPER EXTREMITY LEFT History: Reason: swelling, r/o dvt / Spl. Instructions: / History: Comparison: None. Procedure: Color flow Doppler, Doppler spectral analysis, and 2D images are obtained with and without compression in the jugular vein, subclavian vein, axillary vein, brachial vein, radial vein, ulnar vein, and basilic and cephalic veins. Findings: Patent left internal jugular, subclavian, brachial, radial and ulnar veins. Normal augmentation and compression. Occlusive thrombus within the left basilic vein within the region of the PICC in the upper arm. IMPRESSION: 1. Left basilic superficial vein thrombosis in the region of the PICC. 2. No evidence of deep vein thrombosis. Course & Med Decision Making Course & Med Decision Making Pertinent Labs and Imaging studies reviewed. (See chart for details) Discussed infectious disease, due to recent surgery and fall risk will not do anticoagulation for superficial thrombosis. IR consulted for PICC line removal on the left and placement in the right. Hospitalist consulted for admission due to patient's weakness and inability to care for self at home. Lives with her sister who is been unable to help her with her PICC line. Patient has been to the emergency department over PICC line issues 3 times in the last 10 days. Warrants PT OT evaluation for possible rehab placement [] Dragon Disclaimer Dragon Disclaimer This electronic medical record was generated, in whole or in part, using a voice recognition dictation system. Departure Departure Impression: Primary Impression: Superficial venous thrombosis of left arm Disposition: ADMITTED INPATIENT Condition: STABLE Referrals: JOSE CALVILLO MD (PCP) FRANKIE MARTIN MD Mar 07, 2020 12:49
--- NOTE | 2020-03-07 13:40 | RAD ---
VENOUS UPPER EXTREMITY LEFT History: Reason: swelling, r/o dvt / Spl. Instructions: / History: Comparison: None. Procedure: Color flow Doppler, Doppler spectral analysis, and 2D images are obtained with and without compression in the jugular vein, subclavian vein, axillary vein, brachial vein, radial vein, ulnar vein, and basilic and cephalic veins. Findings: Patent left internal jugular, subclavian, brachial, radial and ulnar veins. Normal augmentation and compression. Occlusive thrombus within the left basilic vein within the region of the PICC in the upper arm. IMPRESSION: 1. Left basilic superficial vein thrombosis in the region of the PICC. 2. No evidence of deep vein thrombosis. Electronically signed by: Sundya Robbins DO (03/07/2020 1:37 PM) [id number]
[2020-03-07] MEDS ORDERED: 0.9 % SODIUM CHLORIDE 10 ML DISP.SYRIN. IV PRN ×3 (14:30)
--- NOTE | 2020-03-07 14:32 | NUR ---
CHARLES contacted by ER nurse to see if pt could be placed in SNU from the ER. Pt being seen for PICC pain and family can't care for her in the home. SW reviewed chart. Pt was admitted last month and discharged home with support from family as well as [facility] and home infusion with [facility] for IV abx. Pt refused SNU on last admission. CHARLES spoke with Dipika from [facility] who stated that pt has not had PT/OT in the last 48 hours and with no ability to do a COVID test from home it would be difficult to place pt into a SNU from the community. Pt does not want LTC per RN. Pt would also need insurance authorization for SNU. CHARLES advised that pt can't be placed into SNU from the ER and that pt will need to be admitted observation status with the statement that pt failed at home, as this will help with insurance authorization. CHARLES requested that COVID test be done in the ER and that PT/OT be ordered prior to admission should pt be admitted.
[2020-03-07] MEDS ORDERED: LIDOCAINE WITH 8.4% SOD BICARB 3 ML DISP.SYRIN. ONE (14:42)
[2020-03-07] MEDS ORDERED: LIDOCAINE WITH 8.4% SOD BICARB 3 ML DISP.SYRIN. INJ ONE (15:00)
[2020-03-07] MEDS ORDERED: MORPHINE SULFATE 4 MG/ML VIAL. IV ONE ×2 (16:00)
--- NOTE | 2020-03-07 17:10 | PDOC1 ---
History and Physical Date of Service: DOS: DATE: 03/07/20 TIME: 17:07 Chief Complaint: Chief Complain: PICC malfunction History of Present Illness: HPI: Patient is a 69-year-old female who was recently admitted on 02/17/2020 for right knee wound dehiscence and subsequent hardware removal and washout by orthopedic surgery. Patient was discharged home with a PICC line and long-term antibiotics specifically daptomycin and meropenem. Patient states that 2 days ago home health was having difficulty flushing it and there was seems to be fluid accumulating near the PEG site. There was some mild swelling and tenderness on the medial side of the arm and it was painful during infusion. Patient denies any fevers, wound complications, chest pain, syncope, bleeding, or abdominal pains or diarrhea. Patient will be admitted for IV antibiotics and observation of new PICC line. Patient would also need certified social workers in health care to find assistance for IV antibiotic infusion as the family is unable to manage antibiotic infusion schedule. Past Medical/Surgical History: PMH/PSH: Past Medical History: Hypertension, recent knee infection Past Surgical History: Knee Replacement, Hardware removal RT knee 02/24/20 Allergies: Allergies: Coded Allergies: atenolol (Verified Allergy, Severe, SWELLING OF FACE, 02/10/20) lisinopril (Verified Allergy, Severe, SWELLING OF FACE, 02/10/20) Penicillins (Verified Allergy, Intermediate, Swelling, 02/17/20) Family History: Family History: Reviewed and none reported Social History: Social History: Smoking Status: Former Smoker Alcohol Use: None Drug Use: None Current Medications: Current Medications Current Medications Sodium Chloride (Normal Saline Flush) 10 ml QSHIFT PRN IV AFTER MEDS AND BLOOD DRAWS; Start 03/07/20 at 14:30 Sodium Chloride (Normal Saline Flush) 10 ml PRN Q5MIN PRN IV AFTER MEDS AND BLOOD DRAWS; Start 03/07/20 at 14:30 Sodium Chloride (Normal Saline Flush) 20 ml PRN Q5MIN PRN IV AFTER MEDS AND BLOOD DRAWS; Start 03/07/20 at 14:30 Lidocaine HCl (Buffered Lidocaine 1%) 3 ml STK-MED ONCE .ROUTE ; Start 03/07/20 at 14:42; Stop 03/07/20 at 14:42; Status DC Lidocaine HCl (Buffered Lidocaine 1%) 6 ml 1X ONCE INJ Last administered on 03/07/20at 15:02; Start 03/07/20 at 15:00; Stop 03/07/20 at 15:01; Status DC Morphine Sulfate (Morphine Sulfate) 4 mg 1X ONCE IV Last administered on 03/07/20at 16:05; Start 03/07/20 at 16:00; Stop 03/07/20 at 16:01; Status DC Morphine Sulfate (Morphine Sulfate) 4 mg 1X ONCE IV ; Start 03/07/20 at 16:00; Stop 03/07/20 at 16:01; Status DC Active Scripts Active Meropenem 1 Gm Vial 1 Gm IV BID 28 Days Thera-M Tablet (Multivits,Ca,Minerals/Iron/Fa) 1 Each Tablet 1 Tab PO DAILY 30 Days Vitamin C (Ascorbic Acid) 500 Mg Tablet 500 Mg PO DAILY 30 Days Culturelle (Lactobacillus Rhamnosus Gg) 1 Each Cap.sprink 1 Cap PO BID 30 Days Polyethylene Glycol 3350 17 Gm Powd.pack 17 Gm PO DAILY 30 Days Dok (Docusate Sodium) 100 Mg Capsule 100 Mg PO DAILY 30 Days Calcium Carbonate 200 Mg Tab.chew 500 Mg PO PRN QID PRN 30 Days Normal Saline Flush (0.9 % Sodium Chloride) 2 Ml Disp.syrin 10 Ml IV QSHIFT PRN 30 Days Percocet 5-325 Mg Tablet (Oxycodone/Acetaminophen) 1 Each Tablet 2 Tab PO PRN Q4HRS PRN 30 Days Aspirin Ec (Aspirin) 325 Mg Tablet. 325 Mg PO BID 30 Days Metoprolol Tartrate 50 Mg Tablet 50 Mg PO BID 30 Days Daptomycin 350 Mg Vial 350 Mg IV DAILY10 28 Days Reported Aspirin 81 Mg Tab.chew 1 Tab PO DAILY Amlodipine Besylate 10 Mg Tablet 10 Mg PO DAILY Pantoprazole Sodium (Pantoprazole Sodium) 40 Mg Tablet. 40 Mg PO DAILYAC Hydralazine Hcl 25 Mg Tablet 25 Mg PO BID ROS: Review of Systems Review of System REVIEW OF SYSTEMS: GENERAL: Denies weakness SKIN: No bruising, hair changes or rashes. EYES: No blurred, double or loss of vision. NOSE AND THROAT: No history of nosebleeds, hoarseness or sore throat. HEART: No history of palpitations, chest pain or shortness of breath on exertion. LUNGS: Denies cough, hemoptysis, wheezing or shortness of breath. GASTROINTESTINAL: Denies changes in appetite, nausea, vomiting, diarrhea or constipation. GENITOURINARY: No history of frequency, urgency, hesitancy or nocturia. NEUROLOGIC: Denies history of numbness, tingling, or tremor. PSYCHIATRIC: No history of panic, anxiety or depression. ENDOCRINE: No history of heat or cold intolerance, polyuria or polydipsia. EXTREMITIES: Denies joint pain, pain on walking or stiffness. Physical Exam: Vital Signs: Vital Signs Date Time Temp Pulse Resp B/P (MAP) Pulse Ox O2 Delivery O2 Flow Rate FiO2 03/07/20 16:05 20 03/07/20 14:34 74 172/80 (110) 100 Room Air 03/07/20 10:30 98.9 98.9 Physcial Exam: GEN: No apparent distress. Alert and oriented HEENT: Normal cephalic, atraumatic, external auditory canals are patent EYES: Extraocular muscles are intact, pupil are equally round and reactive to light and accommodation MUSCULOSKELETAL: Well developed , well nourished, good range of motion ENDOCRINE: No thyromegaly was palpated LYMPHATICS: No cervical chain or axillary nodes were noted HEMATOPOIETIC: No bruising NECK: Supple, no JVD, no thyromegaly was noted LUNGS: Clear to auscultation in all lung mares without rhonchi or wheezing HEART: RRR, S!, S2 present. Peripheral pulses intact, no obvious murmurs noted ABDOMEN: Soft, nontender. Positive bowel sounds, no organomegaly, normal bowel sounds EXTREMITIES: Prior leftper extremity PICC line removed. Dressings are clear dry and intact. New PICC line placed in right upper extremity with no abnormal findings. NEUROLOGIC: Normal speech and tone. A&O x 3, moves all extremities, no obvious focal deficits PSYCHIATRIC: Normal affect, normal mood. Stable SKIN: No ulcerations or rashes, good skin turgor, no jaundice VASCULAR: Good capillary refill, neurovascular bundle appears to be intact Labs: Labs: Laboratory Tests Test 03/07/20 15:20 SARS-CoV-2 Antigen (Rapid) Negative (NEGATIVE) Laboratory Tests Test 03/07/20 15:20 SARS-CoV-2 Antigen (Rapid) Negative (NEGATIVE) Images: Images CXR Impression: 1. Left PICC with tip projecting over the right atrium. 2. Mild cardiomegaly Assessment/Plan Assessment/Plan PICC line malfunction History of right knee infection with subsequent hardware removal History of hypertension Admit to medicine for further management Continue IV daptomycin and meropenem Lovenox for DVT prophylaxis ADA diet Full code Discussed with RN and SW Disposition inpatient care as above Surrogate decision maker is sister Justifications for Admission Other Justification BARBER NEWELL MD Mar 07, 2020 17:10
[2020-03-07] MEDS ORDERED: CALCIUM CARBONATE 500 MG TAB.CHEW PO PRN (17:15)
[2020-03-07] MEDS ORDERED: DEXTROSE 50% 25 GM / 50ML DISP.SYRIN. IV PRN (17:30)
[2020-03-07] MEDS ORDERED: ONDANSETRON PF 4 MG/2 ML VIAL. IVP PRN (17:30)
[2020-03-07] MEDS ORDERED: ACETAMINOPHEN 325 MG TABLET. PO PRN (17:30)
[2020-03-07] MEDS ORDERED: POTASSIUM CHLORIDE 20 MEQ TABLET.ER. PO PRN (17:30)
[2020-03-07] MEDS ORDERED: MAGNESIUM SULFATE 2GM 50 ML IV SCH (17:30)
[2020-03-07] MEDS ORDERED: DOCUSATE SODIUM 100 MG CAPSULE. PO PRN (17:30)
[2020-03-07] MEDS ORDERED: POTASSIUM CHLORIDE 10MEQ 100 ML IV PRN (17:30)
[2020-03-07] MEDS ORDERED: SENNOSIDES 8.6 MG TABLET PO PRN (17:30)
[2020-03-07] MEDS ORDERED: POTASSIUM CHLORIDE 10MEQ 100 ML IV SCH (17:30)
[2020-03-07] MEDS ORDERED: ELECTROLYTE (NON-ICU) PROTOCOL MC PRN (17:45)
--- NOTE | 2020-03-07 18:52 | EKG ---
[facility] [address] [place] [address] Test Date: 2020-03-02 Test Time: 11:22:28 Pat Name: ELENA MARTINEZ Department: Room: Gender: F Business Banking Officer: : 1950 Requested By: FRANKIE MARTIN Order Number: [id number] Reading MD: Measurements Intervals [place] Rate: 152 P: VT: QRS: -22 QRSD: 92 T: 84 QT: 308 QTc: 497 Interpretive Statements SUPRAVENTRICULAR TACHYCARDIA LEFTWARD AXIS ST & T ABNORMALITY, CONSIDER HIGH LATERAL ISCHEMIA OR LEFT VENTRICULAR STRAIN T ABNORMALITY IN INFERIOR LEADS ABNORMAL ECG RI6.02 No previous ECG available for comparison
[2020-03-07 19:00] VITALS: BP 172/78
[2020-03-07] MEDS: oxyCODONE/APAP 5/325 1 TAB TABLET PO PRN (19:21)
[2020-03-07] MEDS: hydrALAZINE 25 MG TABLET PO SCH (20:17)
[2020-03-07] MEDS: METOPROLOL TART IMMED RELEASE 50 MG TABLET. PO SCH (20:17)
[2020-03-07] MEDS: MEROPENEM 1 GM in IV NORMAL SALINE 100ML 100 ML IV SCH (20:18)
[2020-03-07] MEDS: ENOXAPARIN 40 MG/0.4 ML SYRINGE. SQ SCH (20:18)
[2020-03-07] MEDS ORDERED: MEROPENEM 1 GM VIAL IV SCH (21:00)
[2020-03-07] MEDS ORDERED: MAGNESIUM OXIDE 400 MG TABLET PO SCH (21:00)
[2020-03-07 23:00] VITALS: BP 159/67
[2020-03-08] MEDS: oxyCODONE/APAP 5/325 1 TAB TABLET PO PRN ×5 (01:02→20:36)
[2020-03-08 02:48] VITALS: BP 158/76
[2020-03-08 07:00] VITALS: BP 131/80
--- NOTE | 2020-03-08 07:00 | NUR ---
Received patient transfer from , report from RONAN Rausch, will continue to monitor patient.
[2020-03-08 07:04] LABS: CALCIUM 8.8 mg/dL (8.5-10.1); CREATININE 0.7 mg/dL (0.6-1.0); GFR 100.7; MAGNESIUM 1.8 mg/dL (1.8-2.4); PHOSPHORUS 4.3 mg/dL (2.6-4.7); POTASSIUM 3.4 mmol/L (3.5-5.1)
[2020-03-08 07:05] LABS: BASO # 0.1 x10^3/uL (0.0-0.2); BASO % 1 % (0-3); EOS # 0.3 x10^3/uL (0.0-0.7); EOS % 8 % (0-3); HEMATOCRIT 28.9 % (36.0-47.0); HEMOGLOBIN 9.6 g/dL (12.0-15.5); LYMPH # 1.4 x10^3/uL (1.0-4.8); LYMPH % 33 % (24-48); MEAN CORPUSCULAR HEMOGLOBIN 27 pg (25-35); MEAN CORPUSCULAR HGB CONC 33 g/dL (31-37); MEAN CORPUSCULAR VOLUME 82 fL (79-100); MONO # 0.5 x10^3/uL (0.0-1.1); MONO % 11 % (0-9); NEUT % 47 % (31-73); PLATELET COUNT 288 x10^3/uL (140-400); RED BLOOD COUNT 3.51 x10^6/uL (3.50-5.40); RED CELL DISTRIBUTION WIDTH 15.7 % (11.5-14.5); WHITE BLOOD COUNT 4.3 x10^3/uL (4.0-11.0)
[2020-03-08] MEDS: ASPIRIN CHEWABLE 81 MG TABLET. PO SCH (09:33)
[2020-03-08] MEDS: amLODIPine BESYLATE 10 MG TABLET PO SCH (09:33)
[2020-03-08] MEDS: MULTIVITAMIN with MINERAL TABLET. PO SCH (09:33)
[2020-03-08] MEDS: POLYETHYLENE GLYCOL 3350 17 GM PACKET. PO SCH (09:34)
[2020-03-08] MEDS: METOPROLOL TART IMMED RELEASE 50 MG TABLET. PO SCH ×2 (09:34→20:35)
[2020-03-08] MEDS: hydrALAZINE 25 MG TABLET PO SCH ×2 (09:34→20:35)
[2020-03-08] MEDS: ASCORBIC ACID 500 MG TABLET PO SCH (09:34)
[2020-03-08] MEDS: PANTOPRAZOLE 40 MG TABLET.DR. PO SCH (09:34)
[2020-03-08] MEDS: DOCUSATE SODIUM 100 MG CAPSULE. PO SCH (09:35)
[2020-03-08] MEDS: MEROPENEM 1 GM in IV NORMAL SALINE 100ML 100 ML IV SCH ×3 (09:36→21:48)
[2020-03-08] MEDS ORDERED: NON FORMULARY ITEM (Daptomycin 350 MG) IV SCH (10:00)
[2020-03-08] MEDS: DAPTOmycin (GENERIC) IVPB 480 MG in IV NORMAL SALINE 50ML 50 ML IV SCH (10:25)
[2020-03-08 11:00] VITALS: BP 119/47
--- NOTE | 2020-03-08 12:21 | NUR ---
SW following. Discussed with RN, pt admitted obs for SNU placement as unable to get to SNU from ER or home due to insurance auth. CHARLES met with pt, pt agreeable with referral to [facility]. [facility] accepted, pending insurance auth. Pt is COVID-19 negative. Pt had PICC line replaced, on IV dapto and meropenem (which pt was on at home). CHARLES will continue to follow. Addendum: 03/08/20 at 1530 by NITO SOTO Insurance approved, plan for discharge first thing tomorrow morning (03/09/2020). RN notified.
[2020-03-08 15:00] VITALS: BP 98/53
--- NOTE | 2020-03-08 16:34 | PDOC ---
[employer] PROGRESS NOTE Date of Service DOS: DATE: 03/08/20 TIME: 16:31 Chief Complaint Chief Complaint PICC line malfunction History of right knee infection with subsequent hardware removal History of hypertension A/P Admit to medicine for further management Continue IV daptomycin and meropenem shelter for rehab Lovenox for DVT prophylaxis ADA diet Full code History of Present Illness History of Present Illness Patient is a 69-year-old female who was recently admitted on 02/17/2020 for right knee wound dehiscence and subsequent hardware removal and washout by orthopedic surgery. Patient was discharged home with a PICC line and long-term antibiotics specifically daptomycin and meropenem. Patient states that 2 days ago home health was having difficulty flushing it and there was seems to be fluid accumulating near the PEG site. There was some mild swelling and tenderness on the medial side of the arm and it was painful during infusion. Patient denies any fevers, wound complications, chest pain, syncope, bleeding, or abdominal pains or diarrhea. Patient will be admitted for IV antibiotics and observation of new PICC line. Patient would also need health and social care teacher to find assistance for IV antibiotic infusion as the family is unable to manage antibiotic infusion schedule. 03/08/2020 Patient had left PICC line removed, PICC line placed on right. Antibiotics have been resumed. Discussed with patient and family, she is wanting prison upon discharge. Chart and labs reviewed, discussed with RN. Vitals/I&O Vitals/I&O: Vital Signs Date Time Temp Pulse Resp B/P (MAP) Pulse Ox O2 Delivery O2 Flow Rate FiO2 03/08/20 15:00 98.1 67 18 98/53 (68) 98 Room Air 98.1 I & O 03/07/20 03/07/20 03/08/20 14:59 22:59 06:59 Intake Total 0 ml Balance 0 ml Physical Exam General: Alert, Oriented X3 Heart: Regular rate Lungs: Clear Abdomen: Normal bowel sounds Extremities: No clubbing, Other (PICC line in the right upper extremity) Skin: No rashes Labs Labs: Laboratory Tests Test 03/08/20 06:05 White Blood Count 4.3 x10^3/uL (4.0-11.0) Red Blood Count 3.51 x10^6/uL (3.50-5.40) Hemoglobin 9.6 g/dL (12.0-15.5) Hematocrit 28.9 % (36.0-47.0) Mean Corpuscular Volume 82 fL (79-100) Mean Corpuscular Hemoglobin 27 pg (25-35) Mean Corpuscular Hemoglobin Concent 33 g/dL (31-37) Red Cell Distribution Width 15.7 % (11.5-14.5) Platelet Count 288 x10^3/uL (140-400) Neutrophils (%) (Auto) 47 % (31-73) Lymphocytes (%) (Auto) 33 % (24-48) Monocytes (%) (Auto) 11 % (0-9) Eosinophils (%) (Auto) 8 % (0-3) Basophils (%) (Auto) 1 % (0-3) Neutrophils # (Auto) 2.0 x10^3/uL (1.8-7.7) Lymphocytes # (Auto) 1.4 x10^3/uL (1.0-4.8) Monocytes # (Auto) 0.5 x10^3/uL (0.0-1.1) Eosinophils # (Auto) 0.3 x10^3/uL (0.0-0.7) Basophils # (Auto) 0.1 x10^3/uL (0.0-0.2) Sodium Level 140 mmol/L (136-145) Potassium Level 3.4 mmol/L (3.5-5.1) Chloride Level 104 mmol/L (98-107) Carbon Dioxide Level 26 mmol/L (21-32) Anion Gap 10 (6-14) Blood Urea Nitrogen 6 mg/dL (7-20) Creatinine 0.7 mg/dL (0.6-1.0) Estimated GFR (Cockcroft-Gault) 100.7 Glucose Level 121 mg/dL (70-99) Calcium Level 8.8 mg/dL (8.5-10.1) Phosphorus Level 4.3 mg/dL (2.6-4.7) Magnesium Level 1.8 mg/dL (1.8-2.4) Review of Systems Review of Systems: Denies fever, denies nausea, denies vomiting, denies shortness of breath. Assessment and Plan Assessmemt and Plan Problems Medical Problems: (1) Superficial venous thrombosis of left arm Status: Acute Comment Review of Relevant I have reviewed the following items gala (where applicable) has been applied. Medications: Current Medications Medications (Trade) Dose Ordered Sig/Dodie Route PRN Reason Start Time Stop Time Status Last Admin Dose Admin Amlodipine Besylate (Norvasc) 10 mg DAILY PO 03/08/20 09:00 03/08/20 09:33 Ascorbic Acid (Vitamin C) 500 mg DAILY PO 03/08/20 09:00 03/08/20 09:34 Aspirin (Aspirin Chewable) 81 mg DAILY PO 03/08/20 09:00 03/08/20 09:33 Docusate Sodium (Colace) 100 mg DAILY PO 03/08/20 09:00 03/08/20 09:35 Hydralazine HCl (Apresoline) 25 mg BID PO 03/07/20 21:00 03/08/20 09:34 Metoprolol Tartrate (Lopressor) 50 mg BID PO 03/07/20 21:00 03/08/20 09:34 Multivitamins (Thera M Plus) 1 tab DAILY PO 03/08/20 09:00 03/08/20 09:33 Oxycodone/ Acetaminophen (Percocet 5/325) 2 tab PRN Q4HRS PRN PO SEVERE PAIN (2nd Choice) 03/07/20 17:15 03/08/20 15:36 Pantoprazole Sodium (Protonix) 40 mg DAILYAC PO 03/08/20 07:30 03/08/20 09:34 Polyethylene Glycol (miraLAX PACKET) 17 gm DAILY PO 03/08/20 09:00 03/08/20 09:34 Meropenem 1 gm/ Sodium Chloride 100 ml @ 200 mls/hr Q12HR IV 03/07/20 21:00 03/08/20 11:41 DC 03/08/20 09:36 Enoxaparin Sodium (Lovenox 40mg Syringe) 40 mg Q24H SQ 03/07/20 21:00 03/07/20 20:18 Daptomycin 480 mg/ Sodium Chloride 50 ml @ 100 mls/hr Q24H IV 03/08/20 10:00 03/08/20 10:25 Meropenem 1 gm/ Sodium Chloride 100 ml @ 200 mls/hr Q8HRS IV 03/08/20 14:00 03/08/20 14:25 Justifications for Admission Other Justification Central malfunction CRISTIAN VAZQUEZ MD Mar 08, 2020 16:34
[2020-03-08 19:49] VITALS: BP 124/57
[2020-03-08] MEDS: LACTOBACILLUS RHAMNOSUS GG 1 CAPSULE. PO SCH (20:35)
[2020-03-08] MEDS: ENOXAPARIN 40 MG/0.4 ML SYRINGE. SQ SCH (20:36)
[2020-03-08 23:44] VITALS: BP 90/60
[2020-03-09 03:08] VITALS: BP 113/68
[2020-03-09] MEDS: PANTOPRAZOLE 40 MG TABLET.DR. PO SCH (03:55)
[2020-03-09] MEDS: oxyCODONE/APAP 5/325 1 TAB TABLET PO PRN ×2 (03:55→11:40)
[2020-03-09] MEDS: MEROPENEM 1 GM in IV NORMAL SALINE 100ML 100 ML IV SCH ×2 (05:13→13:24)
[2020-03-09 07:05] VITALS: BP 141/66
[2020-03-09] MEDS: POLYETHYLENE GLYCOL 3350 17 GM PACKET. PO SCH (09:00)
[2020-03-09] MEDS: DOCUSATE SODIUM 100 MG CAPSULE. PO SCH (09:00)
[2020-03-09] MEDS: LACTOBACILLUS RHAMNOSUS GG 1 CAPSULE. PO SCH (09:19)
[2020-03-09] MEDS: ASCORBIC ACID 500 MG TABLET PO SCH (09:19)
[2020-03-09] MEDS: MULTIVITAMIN with MINERAL TABLET. PO SCH (09:19)
[2020-03-09] MEDS: ASPIRIN CHEWABLE 81 MG TABLET. PO SCH (09:19)
[2020-03-09] MEDS: METOPROLOL TART IMMED RELEASE 50 MG TABLET. PO SCH (09:20)
[2020-03-09] MEDS: amLODIPine BESYLATE 10 MG TABLET PO SCH (09:20)
[2020-03-09] MEDS: hydrALAZINE 25 MG TABLET PO SCH (09:21)
[2020-03-09] MEDS: DAPTOmycin (GENERIC) IVPB 480 MG in IV NORMAL SALINE 50ML 50 ML IV SCH (10:23)
[2020-03-09 11:05] VITALS: BP 129/60
--- NOTE | 2020-03-09 11:05 | NUR ---
CHARLES following. Discussed with RN, pt's insurance approved SNU. CHARLES notified Dr. Lamb, awaiting discharge paperwork. CHARLES will continue to follow. Addendum: 03/09/20 at 1251 by NITO SOTO Pt is a pt of Dr. Singer today. Dr. Singer entered discharge orders. Faxed to [facility]. Transportation arranged for 1430 with [facility] transportation. RN and [facility] notified. Pt signed choice of vendor form.
--- NOTE | 2020-03-09 11:33 | PDOC ---
[employer] PROGRESS NOTE Date of Service DOS: DATE: 03/09/20 TIME: 11:31 Chief Complaint Chief Complaint PICC line malfunction History of right knee infection with subsequent hardware removal on long-term antibiotics History of hypertension A/P Consider calling Ortho for wound check of the knee if needed Admit to medicine for further management Continue IV daptomycin and meropenem will likely continue for 6 weeks total duration detention for rehab Lovenox for DVT prophylaxis ADA diet Full code History of Present Illness History of Present Illness Patient is a 69-year-old female who was recently admitted on 02/17/2020 for right knee wound dehiscence and subsequent hardware removal and washout by orthopedic surgery. Patient was discharged home with a PICC line and long-term antibiotics specifically daptomycin and meropenem. Patient states that 2 days ago home health was having difficulty flushing it and there was seems to be fluid accumulating near the PEG site. There was some mild swelling and tenderness on the medial side of the arm and it was painful during infusion. Patient denies any fevers, wound complications, chest pain, syncope, bleeding, or abdominal pains or diarrhea. Patient will be admitted for IV antibiotics and observation of new PICC line. Patient would also need medical social consultant to find assistance for IV antibiotic infusion as the family is unable to manage antibiotic infusion schedule. 03/08/2020 Patient had left PICC line removed, PICC line placed on right. Antibiotics have been resumed. Discussed with patient and family, she is wanting longterm upon discharge. Chart and labs reviewed, discussed with RN. Vitals/I&O Vitals/I&O: Vital Signs Date Time Temp Pulse Resp B/P (MAP) Pulse Ox O2 Delivery O2 Flow Rate FiO2 03/09/20 09:21 75 141/66 03/09/20 08:00 Room Air 03/09/20 07:05 97.3 20 100 97.3 I & O 03/08/20 03/08/20 03/09/20 15:00 23:00 07:00 Intake Total 0 ml 1540 ml 340 ml Balance 0 ml 1540 ml 340 ml Physical Exam Physical Exam: GEN: No apparent distress. Alert and oriented HEENT: Normal cephalic, atraumatic, external auditory canals are patent NECK: Supple, no JVD, no thyromegaly was noted LUNGS: Bilateral clear HEART: RRR, S1, S2 present. Peripheral pulses intact, no obvious murmurs noted ABDOMEN: Soft, nontender. Positive bowel sounds, no organomegaly, normal bowel sounds EXTREMITIES: Right knee dressings are clear dry and intact General: Alert, Oriented X3 Heart: Regular rate Lungs: Clear Abdomen: Normal bowel sounds Extremities: No clubbing, Other (PICC line in the right upper extremity) Skin: No rashes Assessment and Plan Assessmemt and Plan Problems Medical Problems: (1) Superficial venous thrombosis of left arm Status: Acute Comment Review of Relevant I have reviewed the following items gala (where applicable) has been applied. Medications: Current Medications Medications (Trade) Dose Ordered Sig/Dodie Route PRN Reason Start Time Stop Time Status Last Admin Dose Admin Lactobacillus Rhamnosus (Culturelle) 1 cap BID PO 03/08/20 21:00 03/09/20 09:19 Meropenem 1 gm/ Sodium Chloride 100 ml @ 200 mls/hr Q8HRS IV 03/08/20 14:00 03/09/20 05:13 Justifications for Admission Other Justification Central malfunction BARBER NEWELL MD Mar 09, 2020 11:33
--- NOTE | 2020-03-09 11:56 | SNU/HH DC ---
DISCHARGE ORDERS DISCHARGE INFORMATION: DISCHARGE DATE: Mar 09, 2020 FINAL DIAGNOSIS Problems Medical Problems: (1) Superficial venous thrombosis of left arm Status: Acute CONDITION ON DISCHARGE: Stable CODE STATUS: Code Status: Full PENITENTIARY: SNF STAY <30 DAYS: Yes HOSPICE: HOSPICE: No HOSPICE EVAL & TREAT: No LTAC: ADMIT TO LTAC: No POST DISCHARGE ORDERS: ACTIVITY ORDERS: Activity as tolerated WEIGHT BEARING STATUS: Partial weight bearing BATHING ORDERS: Shower-keep dressing dry, No Tub Bath until see DIET AFTER DISCHARGE: Cardiac WOUND/INCISION CARE: Other, see below CHECKS AFTER DISCHARGE: CHECKS AFTER DISCHARGE: Check blood press - daily FOLLOW-UP: PHYSICIAN FOLLOW-UP: PCP within 2 weeks of discharge ADDITIONAL FOLLOW-UP: Infectious disease within 2 weeks of discharge for antibiotic duration LAB ORDERS FOR FOLLOW-UP: CBC, CMP TREATMENT/EQUIPMENT ORDERS: ADAPTIVE EQUIPMENT NEEDED: Front wheeled walker, Walker Physical Therapy For: Evalulation/Treatment Occupational Therapy For: Evaluation/Treatment Speech Language Pathology For: Evaluation/Treatment DISCHARGE MEDICATIONS: Home Meds Active Scripts Meropenem (MEROPENEM) 1 Gm Vial, 1 GM IV BID for INFECTION for 28 Days, #56 EACH Prov:HARMAN VILLANUEVA MD 02/26/20 Multivits,Ca,Minerals/Iron/Fa (THERA-M TABLET) 1 Each Tablet, 1 TAB PO DAILY for SUPPLEMENT for 30 Days, #30 TAB Prov:HARMAN VILLANUEVA MD 02/26/20 Ascorbic Acid (VITAMIN C) 500 Mg Tablet, 500 MG PO DAILY for SUPPLEMENT for 30 Days, #30 TAB Prov:HARMAN VILLANUEVA MD 02/26/20 Lactobacillus Rhamnosus Gg (CULTURELLE) 1 Each Cap.sprink, 1 CAP PO BID for SUPPLEMENT for 30 Days, #60 CAP Prov:HARMAN VILLANUEVA MD 02/26/20 Polyethylene Glycol 3350 (POLYETHYLENE GLYCOL 3350) 17 Gm Powd.pack, 17 GM PO DAILY for PREVENT HARD STOOLS for 30 Days, #30 PKT Prov:HARMAN VILLANUEVA MD 02/26/20 Docusate Sodium (DOK) 100 Mg Capsule, 100 MG PO DAILY for STOOLS for 30 Days, #30 CAP Prov:HARMAN VILLANUEVA MD 02/26/20 Calcium Carbonate (CALCIUM CARBONATE) 200 Mg Tab.chew, 500 MG PO PRN QID PRN for INDIGESTION for 30 Days, #60 TAB.CHEW Prov:HARMAN VILLANUEVA MD 02/26/20 0.9 % Sodium Chloride (NORMAL SALINE FLUSH) 2 Ml Disp.syrin, 10 ML IV QSHIFT PRN for AFTER MEDS AND BLOOD DRAWS for 30 Days, #30 DIS.SYR Prov:HARMAN VILLANUEVA MD 02/26/20 Oxycodone/Apap 5-325 (PERCOCET 5-325 MG TABLET ) 1 Each Tablet, 2 TAB PO PRN Q4HRS PRN for SEVERE PAIN (2nd Choice) for 30 Days, #60 TAB Prov:HARMAN VILLANUEVA MD 02/26/20 Aspirin (ASPIRIN EC) 325 Mg Tablet., 325 MG PO BID for HEART HEALTH for 30 Days, #30 TAB.SR Prov:HARMAN VILLANUEVA MD 02/26/20 Metoprolol Tartrate (METOPROLOL TARTRATE) 50 Mg Tablet, 50 MG PO BID for BLOOD PRESSURE for 30 Days, #60 TAB Prov:HARMAN VILLANUEVA MD 02/26/20 Daptomycin (Daptomycin) 350 Mg Vial, 350 MG IV DAILY10 for INFECTION for 28 Days, #28 EACH Prov:HARMAN VILLANUEVA MD 02/26/20 Reported Medications Aspirin (ASPIRIN) 81 Mg Tab.chew, 1 TAB PO DAILY for supplement, #30 TAB 3 Refills 02/18/20 Amlodipine Besylate (AMLODIPINE BESYLATE) 10 Mg Tablet, 10 MG PO DAILY for htn, TAB 11/29/19 Pantoprazole Sodium (PANTOPRAZOLE SODIUM ) 40 Mg Tablet., 40 MG PO DAILYAC for GERD, TAB 06/09/19 Hydralazine Hcl (HYDRALAZINE HCL) 25 Mg Tablet, 25 MG PO BID for htn, TAB 06/09/19 BARBER NEWELL MD Mar 09, 2020 11:56
[2020-03-09] MEDS ORDERED: OXYC1TAB15 PO (12:26)
--- NOTE | 2020-03-09 12:28 | SNU/HH DC ---
DISCHARGE ORDERS DISCHARGE INFORMATION: DISCHARGE DATE: Mar 09, 2020 FINAL DIAGNOSIS Problems Medical Problems: (1) Superficial venous thrombosis of left arm Status: Acute CONDITION ON DISCHARGE: Stable CODE STATUS: Code Status: Full ALF: SNF STAY <30 DAYS: Yes HOSPICE: HOSPICE: No HOSPICE EVAL & TREAT: No LTAC: ADMIT TO LTAC: No POST DISCHARGE ORDERS: ACTIVITY ORDERS: Activity as tolerated WEIGHT BEARING STATUS: Partial weight bearing BATHING ORDERS: Shower-keep dressing dry, No Tub Bath until see DIET AFTER DISCHARGE: Cardiac WOUND/INCISION CARE: Other, see below CHECKS AFTER DISCHARGE: CHECKS AFTER DISCHARGE: Check blood press - daily FOLLOW-UP: PHYSICIAN FOLLOW-UP: PCP within 2 weeks of discharge ADDITIONAL FOLLOW-UP: Infectious disease within 2 weeks of discharge for antibiotic duration LAB ORDERS FOR FOLLOW-UP: CBC, CMP TREATMENT/EQUIPMENT ORDERS: ADAPTIVE EQUIPMENT NEEDED: Front wheeled walker, Walker Physical Therapy For: Evalulation/Treatment Occupational Therapy For: Evaluation/Treatment Speech Language Pathology For: Evaluation/Treatment DISCHARGE MEDICATIONS: Home Meds Active Scripts Oxycodone/Apap 5-325 (PERCOCET 5-325 MG TABLET ) 1 Each Tablet, 1 TAB PO PRN Q4HRS PRN for SEVERE PAIN (2nd Choice) for 30 Days, #60 TAB Prov:BARBER NEWELL MD 03/09/20 Meropenem (MEROPENEM) 1 Gm Vial, 1 GM IV BID for INFECTION for 28 Days, #56 EACH Prov:HARMAN VILLANUEVA MD 02/26/20 Multivits,Ca,Minerals/Iron/Fa (THERA-M TABLET) 1 Each Tablet, 1 TAB PO DAILY for SUPPLEMENT for 30 Days, #30 TAB Prov:HARMAN VILLANUEVA MD 02/26/20 Ascorbic Acid (VITAMIN C) 500 Mg Tablet, 500 MG PO DAILY for SUPPLEMENT for 30 Days, #30 TAB Prov:HARMAN VILLANUEVA MD 02/26/20 Lactobacillus Rhamnosus Gg (CULTURELLE) 1 Each Cap.sprink, 1 CAP PO BID for SUPPLEMENT for 30 Days, #60 CAP Prov:HARMAN VILLANUEVA MD 02/26/20 Polyethylene Glycol 3350 (POLYETHYLENE GLYCOL 3350) 17 Gm Powd.pack, 17 GM PO DAILY for PREVENT HARD STOOLS for 30 Days, #30 PKT Prov:HARMAN VILLANUEVA MD 02/26/20 Docusate Sodium (DOK) 100 Mg Capsule, 100 MG PO DAILY for STOOLS for 30 Days, #30 CAP Prov:HARMAN VILLANUEVA MD 02/26/20 Calcium Carbonate (CALCIUM CARBONATE) 200 Mg Tab.chew, 500 MG PO PRN QID PRN for INDIGESTION for 30 Days, #60 TAB.CHEW Prov:HARMAN VILLANUEVA MD 02/26/20 0.9 % Sodium Chloride (NORMAL SALINE FLUSH) 2 Ml Disp.syrin, 10 ML IV QSHIFT PRN for AFTER MEDS AND BLOOD DRAWS for 30 Days, #30 DIS.SYR Prov:HARMAN VILLANUEVA MD 02/26/20 Aspirin (ASPIRIN EC) 325 Mg Tablet., 325 MG PO BID for HEART HEALTH for 30 Days, #30 TAB.SR Prov:HARMAN VILLANUEVA MD 02/26/20 Metoprolol Tartrate (METOPROLOL TARTRATE) 50 Mg Tablet, 50 MG PO BID for BLOOD PRESSURE for 30 Days, #60 TAB Prov:HARMAN VILLANUEVA MD 02/26/20 Daptomycin (Daptomycin) 350 Mg Vial, 350 MG IV DAILY10 for INFECTION for 28 Days, #28 EACH Prov:HARMAN VILLANUEVA MD 02/26/20 Reported Medications Aspirin (ASPIRIN) 81 Mg Tab.chew, 1 TAB PO DAILY for supplement, #30 TAB 3 Refills 02/18/20 Amlodipine Besylate (AMLODIPINE BESYLATE) 10 Mg Tablet, 10 MG PO DAILY for htn, TAB 11/29/19 Pantoprazole Sodium (PANTOPRAZOLE SODIUM ) 40 Mg Tablet., 40 MG PO DAILYAC for GERD, TAB 06/09/19 Hydralazine Hcl (HYDRALAZINE HCL) 25 Mg Tablet, 25 MG PO BID for htn, TAB 06/09/19 BARBER NEWELL MD Mar 09, 2020 12:28
--- NOTE | 2020-03-09 14:14 | NUR ---
Called report to Julio Cesar FERRARO of [facility] at 1320. All questions have been answered, understanding verbalized.
--- NOTE | 2020-03-09 15:19 | NUR ---
Discharge Note: [facility],[address] Discharge instructions and discharge home medications reviewed with Julio Cesar FERRARO, [facility] and a copy given. All questions have been answered and understanding verbalized. The following instructions and handouts were given: Patient packet given to the transport personnel. Wound care as instructed IV antibiotics for 28 days. Watch out for fever, severe weakness, worsening of symptoms. PICC line in KRISTIAN, intact. Patient discharged to [facility] via wheelchair accompanied by the transport personnel at 1430. Addendum: 03/09/20 at 1525 by TIFFANIE SCHNEIDER RN Addendum: Patient left at 1450.
--- NOTE | 2020-03-13 14:31 | NUR ---
Late Entry- Meropenem given on 03/08 at 14:25 has stop time of 14:55. Meropenem given on 03/09 at 13:24 has stop time of 13:54. Daptomycin given on 03/08 at 10:25 has stop time of 10:55. Daptomycin given on 03/09 at 10:23 has stop time of 10:53.
== END 2020-03-09 14:50 ==
LOC: ER 10:22 → 6 SOUTH 14:55 → 4 NORTH 03-08 07:30
PROVIDERS: ADMIT Internal Medicine; ATTEND Internal Medicine
DX: T82.898A Other specified complication of vascular prosthetic devices, implants and grafts, initial encounter (principal); Z20.828 Contact with and (suspected) exposure to other viral communicable diseases; I51.7 Cardiomegaly; I10 Essential (primary) hypertension; Z96.651 Presence of right artificial knee joint; Z87.891 Personal history of nicotine dependence; Z79.82 Long term (current) use of aspirin; Z79.899 Other long term (current) drug therapy
CPT/HCPCS: 36415; 36573; 71045; 77001; 80048; 83735; 84100; 85025; 87426; 93005; 93971; 96365; 96366; 96368; 96372; 96375; 97162; 97166; 97535; 99285; C1751; C1892; G0378; J0878; J1650; J2185; J2270; J3490; U0003; G0379

== ENCOUNTER → 2020-05-10 | Outpatient (CLI) | payer OTHER, MEDICAID ==
[~2020-05-10] MED LIST changes: +CHOL500021 PO
[2020-05-10 11:09] LABS: PROTHROMBIN TIME PATIENT 12.9 SEC (11.7-14.0)
[2020-05-10 11:37] LABS: ALBUMIN 3.6 g/dL (3.4-5.0); C-REACTIVE PROTEIN 1.1 mg/L (0-3.3); CALCIUM 9.2 mg/dL (8.5-10.1); CREATININE 0.7 mg/dL (0.6-1.0); GFR 100.7; POTASSIUM 3.7 mmol/L (3.5-5.1)
[2020-05-11 11:35] LABS: BASO % 1 % (0-3); EOS # 0.2 x10^3/uL (0.0-0.7); EOS % 3 % (0-3); HEMATOCRIT 33.7 % (36.0-47.0); HEMOGLOBIN 10.8 g/dL (12.0-15.5); LYMPH # 1.3 x10^3/uL (1.0-4.8); LYMPH % 26 % (24-48); MEAN CORPUSCULAR HEMOGLOBIN 25 pg (25-35); MEAN CORPUSCULAR HGB CONC 32 g/dL (31-37); MEAN CORPUSCULAR VOLUME 78 fL (79-100); MONO # 0.4 x10^3/uL (0.0-1.1); MONO % 8 % (0-9); NEUT % 62 % (31-73); PLATELET COUNT 202 x10^3/uL (140-400); RED BLOOD COUNT 4.29 x10^6/uL (3.50-5.40); RED CELL DISTRIBUTION WIDTH 17.4 % (11.5-14.5); WHITE BLOOD COUNT 4.8 x10^3/uL (4.0-11.0)
== END ==
LOC: SURGPAT 09:45
PROVIDERS: ATTEND Orthopaedic Surgery
DX: Z01.812 Encounter for preprocedural laboratory examination (principal); Z96.651 Presence of right artificial knee joint; Z88.8 Allergy status to other drugs, medicaments and biological substances; Z88.0 Allergy status to penicillin; Z20.828 Contact with and (suspected) exposure to other viral communicable diseases
CPT/HCPCS: 36415; 80048; 82040; 82306; 85025; 85610; 85730; 86140; 87641; U0003

== ENCOUNTER 2020-06-08 16:45 | Emergency (ER) | payer OTHER, MEDICAID ==
[~2020-06-08] VITALS: Ht 172.7 cm; Wt 77.0 kg
[~2020-06-08 16:45] MED LIST changes: -MULT1TAB90 PO; +MULT1TAB92 PO; -POLY17PO28 PO; +POLY17PO52 PO
[2020-06-08 17:24] VITALS: BP 156/65
--- NOTE | 2020-06-08 18:28 | RAD ---
Right Lower Extremity Venous Doppler Ultrasound History: Reason: SWELLING, post knee surgery 05/14 Comparison: None Procedure: Color flow, duplex, spectral analysis and 2D images are obtained with and without compress ion in the area of the common femoral vein, superficial femoral vein - femoral vein junction, main fe moral vein (superficial femoral vein) and popliteal vein. Veins of the proximal calf are also imaged. Findings: There is normal duplex flow, color flow and compressibility of all visualized vein segments. No evide nce of deep venous thrombus is present. Impression: No evidence of DVT. Electronically signed by: Chicho Mas III, MD (06/08/2020 6:23 PM) ABELARDO
[2020-06-08 18:59] LABS: BASO # 0.1 x10^3/uL (0.0-0.2); BASO % 1 % (0-3); EOS # 0.6 x10^3/uL (0.0-0.7); EOS % 13 % (0-3); HEMATOCRIT 29.7 % (36.0-47.0); HEMOGLOBIN 9.6 g/dL (12.0-15.5); LYMPH # 1.8 x10^3/uL (1.0-4.8); LYMPH % 39 % (24-48); MEAN CORPUSCULAR HEMOGLOBIN 25 pg (25-35); MEAN CORPUSCULAR HGB CONC 32 g/dL (31-37); MEAN CORPUSCULAR VOLUME 78 fL (79-100); MONO # 0.4 x10^3/uL (0.0-1.1); MONO % 8 % (0-9); NEUT # 1.7 x10^3/uL (1.8-7.7); NEUT % 38 % (31-73); PLATELET COUNT 228 x10^3/uL (140-400); RED BLOOD COUNT 3.82 x10^6/uL (3.50-5.40); RED CELL DISTRIBUTION WIDTH 17.7 % (11.5-14.5); WHITE BLOOD COUNT 4.6 x10^3/uL (4.0-11.0)
--- NOTE | 2020-06-08 19:05 | PHYS DOC ---
Past Medical History Past Medical History: Hypertension Additional Past Medical Histor: PICC antibiotics for knee infection Past Surgical History: Knee Replacement, Other Additional Past Surgical Histo: Hardware removal RT knee 02/24/20 Smoking Status: Former Smoker Alcohol Use: None Drug Use: None General Adult EDM: Chief Complaint: LOWER EXTREMITY SWELLING HPI: HPI: Patient is a 69 year old female who presents with had a left knee replacement on May [address] Boss. Home health has been coming in and helping her. She has been up on her knee and leg a lot today and noticed that the swelling had increased. She does not have increased pain. She denies any numbness or tingling, skin color changes or sensation changes. She rates her pain a throbbing 6 out of 10 but states that is normal. She is on oxycodone at home. Review of Systems: Review of Systems: Constitutional: Denies fever or chills. [] Eyes: Denies change in visual acuity. [] HENT: Denies nasal congestion or sore throat. [] Respiratory: Denies cough or shortness of breath. [] Cardiovascular: Denies chest pain. +left leg edema. [] GI: Denies abdominal pain, nausea, vomiting, bloody stools or diarrhea. [] : Denies dysuria. [] Musculoskeletal: Denies back pain. +chronic left knee joint pain. [] Integument: Denies rash. [] Neurologic: Denies headache, focal weakness or sensory changes. [] Endocrine: Denies polyuria or polydipsia. [] Lymphatic: Denies swollen glands. [] Psychiatric: Denies depression or anxiety. [] Heart Score: Risk Factors: Risk Factors: DM, Current or recent (<one month) smoker, HTN, HLP, family history of CAD, obesity. Risk Scores: Score 0 - 3: 2.5% MACE over next 6 weeks - Discharge Home Score 4 - 6: 20.3% MACE over next 6 weeks - Admit for Clinical Observation Score 7 - 10: 72.7% MACE over next 6 weeks - Early Invasive Strategies Allergies: Allergies: Allergies Coded Allergies Type Severity Reaction Last Updated Verified atenolol Allergy Severe SWELLING OF FACE 05/14/20 Yes lisinopril Allergy Severe SWELLING OF FACE 05/14/20 Yes Penicillins Allergy Intermediate Swelling 05/14/20 Yes Physical Exam: PE: Constitutional: Well developed, well nourished, no acute distress, non-toxic appearance. [] HENT: Normocephalic, atraumatic, bilateral external ears normal, oropharynx moist, no oral exudates, nose normal. [] Eyes: PERRLA, EOMI, conjunctiva normal, no discharge. [] Neck: Normal range of motion, no tenderness, supple, no stridor. [] Cardiovascular:Heart rate regular rhythm, no murmur [] Lungs & Thorax: Bilateral breath sounds clear to auscultation [] Abdomen: Bowel sounds normal, soft, no tenderness, no masses, no pulsatile masses. [] Skin: Warm, dry, no erythema, no rash. [] Back: No tenderness, no CVA tenderness. [] Extremities: No tenderness, no cyanosis, no clubbing, ROM intact, left leg and foot 2+ edema. [] Neurologic: Alert and oriented X 3, normal motor function, normal sensory function, no focal deficits noted. [] Psychologic: Affect normal, judgement normal, mood normal. [] Current Patient Data: Vital Signs: Vital Signs Date Time Temp Pulse Resp B/P (MAP) Pulse Ox O2 Delivery O2 Flow Rate FiO2 06/08/20 17:24 97.8 62 18 156/65 (95) 100 Room Air 97.8 EKG: EKG: [] Radiology/Procedures: Radiology/Procedures: [] Impression: [facility] [address] [place], [place] [id number] IMAGING REPORT Signed PATIENT: ELENA MARTINEZ ACCOUNT: [id number] : 1950 LOCATION: ER AGE: 69 SEX: F EXAM STATUS: REG ER ORD. PHYSICIAN: BETTY MARTE APRN REASON: SWELLING, POST SURGICAL 05/14 PROCEDURE: VENOUS LOWER EXTREMITY RIGHT Right Lower Extremity Venous Doppler Ultrasound History: Reason: SWELLING, post knee surgery 05/14 Comparison: None Procedure: Color flow, duplex, spectral analysis and 2D images are obtained with and without compression in the area of the common femoral vein, superficial femoral vein - femoral vein junction, main femoral vein (superficial femoral vein) and popliteal vein. Veins of the proximal calf are also imaged. Findings: There is normal duplex flow, color flow and compressibility of all visualized vein segments. No evidence of deep venous thrombus is present. Impression: No evidence of DVT. Electronically signed by: Drake Almanzra III, MD (06/08/2020 6:23 PM) [facility] DICTATED and SIGNED BY: DRAKE ALMANZAR III, MD DATE: 06/08/20 [id number] Course & Med Decision Making: Course & Med Decision Making Pertinent Labs and Imaging studies reviewed. (See chart for details) See HPI. Alert and oriented x4. Amatory with a steady gait using a walker. No calf tenderness. The left leg is 2+ more swollen than the right leg. Palpable strong pulse. Skin pink warm and dry. Cap refill less than 2 seconds. She states that the dressing is changed and was changed yesterday per the health nurse. She states it looks very good. She states is not draining. Ultrasound shows no DVT. Patient will be discharged home and follow-up with Dr. Boss. [] Dragon Disclaimer: Dragon Disclaimer: This electronic medical record was generated, in whole or in part, using a voice recognition dictation system. Departure Departure Impression: Primary Impression: Swelling of left lower extremity Disposition: 01 DC HOME SELF CARE/HOMELESS Condition: STABLE Referrals: JOSE CALVILLO MD (PCP) DRAKE BOSS MD Patient Instructions: Total Knee Replacement, Care After Additional Instructions: Follow-up with Dr. Boss as soon as possible. Keep the leg elevated and try to rest. Continue using ice. If the skin color changes or there is extreme coolness to the extremity return tot ed. BETTY MARTE WELFARE OFFICER Jun 08, 2020 19:05
== END 2020-06-08 20:08 | disposition home or self-care (01) ==
LOC: ER 16:45
DX: M25.561 Pain in right knee (principal); R60.0 Localized edema; R20.2 Paresthesia of skin; I10 Essential (primary) hypertension; Z87.891 Personal history of nicotine dependence; Z98.890 Other specified postprocedural states; Z88.0 Allergy status to penicillin; Z88.8 Allergy status to other drugs, medicaments and biological substances
CPT/HCPCS: 36415; 85025; 85610; 93971; 99284

== ENCOUNTER → 2020-07-11 | Outpatient (CLI) | payer OTHER, MEDICAID ==
[~2020-07-11] MED LIST changes: +MULT1TAB90 PO; -MULT1TAB92 PO; +POLY17PO28 PO; -POLY17PO52 PO
--- NOTE | 2020-07-11 16:25 | KCIC ---
STUDY: MRI of the right shoulder without contrast INDICATION: Right shoulder pain. Recent fall. COMPARISON: Right shoulder radiographs 07/03/2020 TECHNIQUE: Multiplanar MR imaging of the right shoulder performed without the use of intravenous or i ntra-articular contrast. FINDINGS: AC joint: Severe arthrosis with capsular/pericapsular edema, a small amount of joint fluid and capsul ar hypertrophy. Mild acromial marrow edema along its undersurface. Mild subacromial subdeltoid bursit is. Rotator cuff: Sequela of previous rotator cuff repair. Generalized heterogeneous signal within the perez praspinatus tendon from the footprint medially over several centimeters. Background thinning of the r epaired tendon which is relatively high-grade (greater than 50 percent cross-sectional involvement) a t a few locations such as at the leading edge and at the mid to posterior aspect along the critical z one. Infraspinatus tendinosis and low-grade thinning of the insertional fibers. There is also a low-g rade interstitial tear of the infraspinatus with a small amount of fluid signal tracking to the myote ndinous junction. Intact teres minor. Subscapularis tendinosis without a high-grade tear. Mild to moderate infraspinatus and mild supraspinatus atrophy/infiltration. Labrum: Global labral degeneration/degenerative tearing. Long head biceps tendon: The intra-articular portion of the tendon is not able to be delineated all t he way to the groove entrance. Tendon remains visualized more distally within the bicipital groove. Cartilage: Scattered humeral head and glenoid high-grade/full-thickness chondral loss. Bones: Glenoid and humeral head osteophyte formation. No acute fracture. Miscellaneous: Small shoulder joint effusion with synovitis and small loose bodies. No axillary adeno lakia. Impression: 1. Sequela of rotator cuff repair. Heterogeneous signal and high-grade thinning of portions of the s upraspinatus tendon both at and several centimeters medial to the footprint without a well delineated full-thickness tear. Less pronounced supraspinatus tendinosis and insertional tendon thinning. These findings are detailed in the body the report. Mild to moderate infraspinatus and mild supraspinatus atrophy/fatty infiltration. 2. The long head biceps tendon is not able to be visualized within the joint space or proximal bicip ital groove but remains visualized within the more distal bicipital groove. Correlate for previous te nodesis. If not performed this could be due to a high-grade intra-articular tear, medial dislocation of the tendon or a full-thickness tear with the tendon scarred down within the proximal groove. 3. Global labral degeneration/degenerative tearing. 4. Advanced glenohumeral joint arthrosis with osteophyte formation and high-grade/full-thickness cho ndral loss at several locations. 5. Severe AC joint arthrosis. Mild subacromial subdeltoid bursitis. Small shoulder joint effusion wi th synovitis and several loose bodies. 6. No acute fracture in the setting of a recent fall. Electronically signed by: GUERLINE WEST MD (07/11/2020 4:22 PM) [id number]
== END ==
LOC: KCIC MRI 13:04
PROVIDERS: ATTEND Orthopaedic Surgery
DX: S43.431A Superior glenoid labrum lesion of right shoulder, initial encounter (principal); M19.011 Primary osteoarthritis, right shoulder; M75.51 Bursitis of right shoulder; M25.411 Effusion, right shoulder; M65.811 Other synovitis and tenosynovitis, right shoulder; M24.011 Loose body in right shoulder; M25.711 Osteophyte, right shoulder; X58.XXXA Exposure to other specified factors, initial encounter; Y93.89 Activity, other specified; Y92.89 Other specified places as the place of occurrence of the external cause; Y99.8 Other external cause status
CPT/HCPCS: 73221

== ENCOUNTER → 2020-11-30 | Outpatient (CLI) | payer OTHER, MEDICAID ==
[~2020-11-30] MED LIST changes: -MULT1TAB90 PO; +MULT1TAB92 PO; -POLY17PO28 PO; +POLY17PO52 PO
--- NOTE | 2020-11-30 17:27 | RAD ---
US DPLX VENOUS EXTREMITY LOWER LT History: Reason: EDEMA TO LT LOWER LEG / Spl. Instructions: / History: Comparison: June 08, 2020 Discussion: Multiple longitudinal and transverse high resolution real-time images of the venous system of left lo wer extremity were obtained with color and Doppler sampling. Patent left common femoral, deep femoral, superficial femoral and calf veins. Eccentric nonocclusive thrombus within the left popliteal vein. Impression: 1. Age-indeterminate nonocclusive thrombus within the left popliteal vein. Recommend follow-up. Electronically signed by: Sunday Robbins DO (11/30/2020 5:24 PM) [facility]
== END ==
LOC: US 16:19
PROVIDERS: ATTEND Family Medicine
DX: R60.0 Localized edema (principal)
CPT/HCPCS: 93971

== ENCOUNTER → 2020-12-11 | Outpatient (CLI) | payer OTHER, MEDICAID ==
--- NOTE | 2020-12-11 14:56 | RAD ---
EXAM: Left ankle, 3 views. HISTORY: Pain. COMPARISON: None. FINDINGS: 3 views of the left ankle are obtained. There is a corticated ossicle inferior to the media l malleolus, likely due to chronic nonunited fracture fragment. The ankle mortise intact. There is no osteochondral lesion. There is a small plantar spur and enthesopathy at Achilles tendon insertion. IMPRESSION: No acute osseous finding. Electronically signed by: Laura Sylvester MD (12/11/2020 2:53 PM) [id number]
== END ==
LOC: RAD 13:44
PROVIDERS: ATTEND Family Medicine
DX: M77.8 Other enthesopathies, not elsewhere classified (principal)
CPT/HCPCS: 73610

== ENCOUNTER → 2020-12-25 | Outpatient (CLI) | payer OTHER, MEDICAID ==
--- NOTE | 2020-12-25 19:16 | CARD ---
MR#: [id number] Date of Study: 12/25/2020 Ordering Physician: SAMARA RIVAS, Referring Physician: Alley HUGHES: Chicho Verdin [facility] APPROVED REPORT EXAM: Two-dimensional and M-mode echocardiogram with Doppler and color Doppler. Other Information Quality : AverageHR: 87bpm Rhythm : NSR INDICATION Hypertension/HCVD RISK FACTORS Hypertension Hyperlipidemia 2D DIMENSIONS RVDd2.4 (2.9-3.5cm)Left Atrium(2D)4.0 (1.6-4.0cm) IVSd1.4 (0.7-1.1cm)Aortic Root(2D)2.9 (2.0-3.7cm) LVDd4.1 (3.9-5.9cm)LVOT Diameter2.0 (1.8-2.4cm) PWd1.5 (0.7-1.1cm)LVDs2.3 (2.5-4.0cm) FS (%) 43.3 %SV54.6 ml Aortic Valve AoV Peak Jonathan.181.5cm/sAoV VTI30.2cm AO Peak GR.13.2mmHgLVOT Peak Jonathan.115.4cm/s LVOT VTI 22.73cmAO Mean GR.8mmHg ROSALBA (VMAX)1.32tk2BBQ (VTI)2.26cm2 Mitral Valve MV E Lnjlvogo38.0cm/sMV DECEL SNBP685ws MV A Voqrgqcu427.9cm/sMV KUN16zl E/A Ratio0.6MVA (PHT)2.62cm2 TDI E/Lateral E'16.4E/Medial E'18.9 Pulmonary Valve PV Peak Rbjbqinv439.0cm/sPV Peak Grad.7mmHg Tricuspid Valve TR P. Nqdvbyus575rb/sTR Peak Gr.25mmHg LEFT VENTRICLE The left ventricle is normal size. There is mild concentric left ventricular hypertrophy. The left ve ntricular systolic function is normal . LV ejection fraction is 55 to 60%. There is normal LV segmen guerda wall motion. Tissue Doppler imaging reveals abnormal left ventricular diastolic dysfunction. No l eft ventricle thrombus noted on this study. There is no ventricular septal defect visualized. There i s no left ventricular aneurysm. There is no mass noted in the left ventricle. RIGHT VENTRICLE The right ventricle is normal size. There is normal right ventricular wall thickness. The right ventr icular systolic function is normal. ATRIA The left atrium is mildly dilated. The right atrium size is normal. The interatrial septum is intact with no evidence for an atrial septal defect or patent foramen ovale as noted on 2-D or Doppler imagi ng. AORTIC VALVE The aortic valve is normal in structure and function. Doppler and Color Flow revealed no significant aortic regurgitation. There is no significant aortic valvular stenosis. There is no aortic valvular v egetation. MITRAL VALVE Mitral annular calcification is mild. The mitral valve is mildly thickened. There is no evidence of m itral valve prolapse. There is no mitral valve stenosis. Doppler and Color-flow revealed mild mitral regurgitation. TRICUSPID VALVE The tricuspid valve is normal in structure and function. Doppler and Color Flow revealed trace to mil d tricuspid regurgitation. There is no tricuspid valve prolapse or vegetation. There is no tricuspid valve stenosis. PULMONIC VALVE The pulmonary valve is normal in structure and function. Doppler and Color Flow revealed no pulmonic valvular regurgitation. There is no pulmonic valvular stenosis. GREAT VESSELS The aortic root is normal in size. The ascending aorta is normal in size. The pulmonary artery is nor mal. The IVC is normal in size and collapses >50% with inspiration. PERICARDIAL EFFUSION There is no pleural effusion. There is no evidence of significant pericardial effusion. Critical Notification Critical Value: No <Conclusion> The left ventricle is normal size. The left ventricular systolic function is normal . LV ejection fraction is 55 to 60%. There is mild concentric left ventricular hypertrophy. Doppler and Color Flow revealed no significant aortic regurgitation. There is no significant aortic valvular stenosis. Doppler and Color-flow revealed mild mitral regurgitation. Doppler and Color Flow revealed trace to mild tricuspid regurgitation. Signed by : Marko Ye MD Electronically Approved : 12/25/2020 19:16:17
== END ==
LOC: ECHO 09:53
PROVIDERS: ATTEND Internal Medicine Cardiovascular Disease
DX: I08.1 Rheumatic disorders of both mitral and tricuspid valves (principal); I10 Essential (primary) hypertension
CPT/HCPCS: 93306

== ENCOUNTER → 2021-01-10 | Outpatient (CLI) | payer OTHER, MEDICAID ==
[~2021-01-10] MED LIST changes: +DOCU-148 PO; -DOCU-153 PO
--- NOTE | 2021-01-10 15:52 | KCIC ---
EXAM: MRI Left ANKLE/HINDFOOT DATE: 01/10/2021 12:38 PM CLINICAL INDICATION: Reason: LEFT ANKLE PAIN / Spl. Instructions: / History: Medial left ankle pain in recent months, not improving. COMPARISON: None. TECHNIQUE: Multiplanar, multisequence MR imaging of the left ankle was performed without IV contrast. FINDINGS: No ankle joint effusion. No significant subtalar joint effusion. Tendons: Anterior tibialis, extensor digitorum longus and extensor hallucis longus tendons are intact. Posterior tibialis is intact although there is mild increased signal and thickening at the os tibiale externum. The flexor digitorum longus and flexor hallucis longus tendons are intact. Peroneus longus and peroneus brevis tendons are intact. The peroneal tendons are anatomically positio bishnu behind the lateral malleolus. Achilles tendon intact with normal signal and morphology. Plantar fascia intact without marginal oste itis or soft tissue swelling. Physiologic fluid at the retrocalcaneal bursa. Ligaments: Medial deltoid stabilizers are intact. The anterior talofibular ligament is diminutive likely from old injury. The posterior talofibular and calcaneofibular ligaments are intact. Anterior and posterior tibiofibular ligaments are intact. Spring ligament intact. Ligaments of the Sinus Tarsi are intact. Spaces/Places: Sinus Tarsi within normal limits, without mass lesion or edema pattern. Tarsal tunnel within normal limits, without mass lesion. Articular Cartilage/joint line/bone: Articular cartilage at the tibiotalar joint preserved. Negative osteochondral lesion of the talar dom e. Posterior and middle subtalar joint spaces are preserved. Marginal joint spaces appear preserved including calcaneocuboid joint. No fracture or osteonecrosis. IMPRESSION: 1. There is marked edema of the medial the plantar aspect of the left midfoot centered at the cell maker ior tibialis attachment. Associated edema in the os tibiale externum suggest symptomatic accessory na vicular. There is a component of at least moderate tendinosis and/or strain pattern of the posterior tibialis. Associated soft tissue contusion medially. Electronically signed by: Braydon Kaur MD (01/10/2021 3:49 PM) [facility]
== END ==
LOC: KCIC MRI 12:20
PROVIDERS: ATTEND Family Medicine
DX: R60.0 Localized edema (principal); M25.572 Pain in left ankle and joints of left foot
CPT/HCPCS: 73721

== ENCOUNTER → 2021-04-17 | Outpatient (CLI) | payer OTHER, MEDICAID ==
[~2021-04-17] MED LIST changes: +CYCL10TA19 PO; -CYCL10TA2 PO
--- NOTE | 2021-04-17 14:59 | KCIC ---
EXAM: Lumbar spine MRI without contrast. HISTORY: Radiculopathy. Spinal stenosis. TECHNIQUE: Multiplanar, multisequence magnetic resonance imaging of the lumbar spine was performed wi thout contrast. COMPARISON: 10/27/2017 FINDINGS: There is a transitional lumbosacral segment. This is a normal variant. Based on the presenc e of suspected hypoplastic T12 ribs, this is considered a sacralized L5 segment with rudimentary L5-S 1 disc for this dictation. Based on this numbering system, there is 4 mm grade 1 anterolisthesis of L 2 on L3 and L3 on L4 and 3 mm retrolisthesis of L4 on L5. There is mild scoliosis. There is multileve l endplate remodeling. There is disc space narrowing and disc desiccation predominantly at the mid lo wer lumbar levels. The conus terminates at L1. At T10-T11, there is a right paracentral disc protrusion. There is mild right and moderate left facet arthropathy. There is mild left foraminal stenosis. At T11-T12, there is moderate right and mild left facet arthropathy. There is no stenosis. At T12-L1, there is moderate bilateral facet arthropathy. There is no stenosis. At L1-L2, there is severe bilateral facet arthropathy. There is hypertrophy of the ligamentum flavum. There is mild central canal stenosis. At L2-L3, there is a broad-based left paracentral to foraminal disc protrusion and slight superior ex trusion superimposed on a disc bulge and endplate remodeling. There is severe bilateral facet arthrop athy. There is hypertrophy of the ligamentum flavum. There is grade 1 anterolisthesis. There is mild right and moderate left foraminal stenosis with abutment the exiting left L2 nerve root. There is sev ere central canal stenosis. At L3-L4, there is a right lateral recess to foraminal disc protrusion and slight superior extrusion superimposed on a disc bulge and endplate remodeling. There is severe bilateral facet arthropathy. Th ere is hypertrophy of the ligamentum flavum. There is grade 1 anterolisthesis. There is moderate to s evere right and mild left foraminal stenosis with abutment of the exiting right L3 nerve root. There is severe central canal stenosis. At L4-L5, there is a posterior central disc protrusion. There is also left foraminal to lateral disc protrusion and osteophyte complex superimposed on a disc bulge and endplate osteophytosis. There is m ild bilateral facet arthropathy. There is mild retrolisthesis. There is mild right and moderate left foraminal stenosis with abutment the exiting left L4 nerve root. At L5-S1, there is a rudimentary disc. There is no stenosis. IMPRESSION: 1. Transitional lumbosacral segment, considered a partially sacralized L5 segment for this dictation. Note is made that this segment was considered S1 on the prior report. 2. Multilevel degenerative change involving the lumbar spine, described in detail above. These findin gs are stable to minimally increased at the majority lumbar levels compared to the prior exam. The ce ntral canal stenosis is most significant at L2-L3 and L3-L4. The right foraminal stenosis is most sig nificant at L3-L4 and a left foraminal stenosis is most significant at L2-L3 and L4-L5. Electronically signed by: Laura Sylvester MD (04/17/2021 2:57 PM) [id number]
== END ==
LOC: KCIC MRI 12:44
PROVIDERS: ATTEND Family Medicine
DX: M47.25 Other spondylosis with radiculopathy, thoracolumbar region (principal); M51.16 Intervertebral disc disorders with radiculopathy, lumbar region; M48.061 Spinal stenosis, lumbar region without neurogenic claudication
CPT/HCPCS: 72148

== ENCOUNTER → 2021-05-03 | Outpatient (CLI) | payer OTHER, MEDICAID ==
[~2021-05-03] MED LIST changes: +APIX2.5T PO
--- NOTE | 2021-05-03 14:31 | PDOC1 ---
INITIAL PAIN CONSULT DATE OF SERVICE: DOS: DATE: 05/03/21 TIME: 14:25 CHIEF COMPLAINT: Chief Complaint: Low back and bilateral lower extremity pain HISTORY OF PRESENT ILLNESS: 70-year-old female presents history of pain low back and bilateral lower extremities left greater than right for about 3 months always been going on for several years much worse over the past 3 months patient reports pain the low back rating to bilateral posterior gluteus posterior lateral thigh lateral anterior thigh anteromedial thighs medial lower legs mostly on the right side but also present on the left patient reports she had knee surgery approximately 1 year ago with her right knee and her back pain began to get much worse after that time patient reports no loss of motor function with significant fatigabi lity of the lower extremity specially the right side with walking standing worse with eating from seated position better with sitting or lying down but wakes her from sleep about 3 times a night patient reports is not effective bowel bladder control but does affect her body walks using a cane which she has with her in her left hand patient reports pain is constant sharp stabbing throbbing in the back aching burning and cramping stabbing and radiating in the lower extremities patient rates her disability rating 0-10 10 being worst is a 5 the family home responsibilities and self-care 9 with recreation 8 with social activity 9 with occupation and sexual behavior in 6 with life support activities. She had an MRI scan lumbar spine which we discussed with her today showing multilevel degenerative change stable to minimally increased at the majority levels compared to prior exam with central's canal stenosis most significant at L2-3 and L3-4 right foraminal stenosis mostly of L3-4 (wasgiven L2-3 and L4-5. Patient reports no loss of motor function but significant fatigability specially of the right lower extremity with ambulation standing and prolonged sitting. Patient is been taking Tylenol as well as oxycodone oxycodone does help the Tylenol has not patient had physical therapy was unable to complete it secondary to complaints of pain. PAST MEDICAL HISTORY: PMH: Hypertension, arthritis, blood clots PREVIOUS SURGERIES: Past Surgical Hx: Right knee replacement 2019, left knee replacement 2009, right rotator cuff repair CURRENT MEDICATIONS: Current Meds: Active Scripts Medications Dose Route/Sig Max Daily Dose Days Date Category Eliquis (Apixaban) 2.5 Mg Tablet 2.5 Mg PO BID 05/03/21 Reported D3-50 (Cholecalciferol (Vitamin D3)) 50,000 Unit Capsule 50,000 Unit PO WEEKLY 05/10/20 Reported Percocet 5-325 Mg Tablet (Oxycodone/Acetaminophen) 1 Each Tablet 1 Tab PO PRN Q4HRS PRN 30 03/09/20 Rx Thera-M Tablet (Multivits,Ca,Minerals/Iron/Fa) 1 Each Tablet 1 Tab PO DAILY 30 02/26/20 Rx Aspirin Ec (Aspirin) 325 Mg Tablet.dr 325 Mg PO BID 30 02/26/20 Rx Metoprolol Tartrate 50 Mg Tablet 50 Mg PO BID 30 02/26/20 Rx Amlodipine Besylate 10 Mg Tablet 10 Mg PO DAILY 11/29/19 Reported Pantoprazole Sodium (Pantoprazole Sodium) 40 Mg Tablet.dr 40 Mg PO DAILYAC 06/09/19 Reported Hydralazine Hcl 25 Mg Tablet 25 Mg PO BID 06/09/19 Reported ALLERGIES; Allergies: Coded Allergies: atenolol (Verified Allergy, Severe, SWELLING OF FACE, 05/14/20) lisinopril (Verified Allergy, Severe, SWELLING OF FACE, 05/14/20) Penicillins (Verified Allergy, Intermediate, Swelling, 05/14/20) FAMILY HISTORY: Family Hx: Hypertension, heart disease, diabetes, cancers SOCIAL HISTORY: Social Hx: Patient is under alcohol does not smoke says any illegal illicit or recreational drugs is lives with 1 child living at home lives [facility] in [facility] REVIEW OF SYSTEMS: ROS: Positive for those items mentioned in history of present illness, all systems are reviewed, otherwise negative ,and are complete full and well-documented on patient's chart. PHYSICAL EXAM: VS: Blood pressure is 178/91 pulse 54 respirations 20 temperature 98.3 F height is 5 foot 8 inches weight is 191 pound PE: PHYSICAL EXAMINATION: GENERAL: The patient is awake, alert, oriented, appropriate, very pleasant in demeanor HEENT: Shows normocephalic, atraumatic. Extraocular movements are intact and symmetrical. Oral cavity: Mucous membranes moist and pink. NECK: Shows anterior throat supple without palpable lymphadenopathy noted. Swallow reflex symmetrical. CHEST: Shows normal on inspection. Breath sounds are clear bilaterally distant no rales rhonchi wheezes auscultated. HEART: Shows S1, S2 clear. No murmurs auscultated. ABDOMEN: Soft, nontender, nondistended, obese. No palpable organomegaly is noted. BACK: Shows spine grossly in the midline. Normal-appearing cervical lordotic curvature. There is mildly increased thoracic kyphosis, some flattening of the lumbar lordotic curvature. Lumbar paraspinous muscles show symmetrical on inspection, on palpation shows some moderate tenderness diffusely throughout the upper, middle and lower distribution of the paraspinous muscles bilaterally and also into the lower thoracic paraspinous musculature, firm and tender, but without specific trigger points, without radiation of pain. The patient has good rotational motion of the lumbar spine, both laterally as well as extension and flexion without significant difficulty. No tenderness over the spinous processes, sacrum or sacroiliac regions. EXTREMITIES: Lower extremities show deep tendon reflexes 1+ in the patellar and tendo calcaneus tendons. Motor exam is 4 on a scale of 5 with right dorsiflexion, extension, quadriceps and hamstring flexion and 5/5 on the left. Peripheral pulses are 1+ posterior tibial. No peripheral edema is noted bilaterally. Lower extremities are warm and dry to touch, equal in color and appearance. Straight leg raise noted to be 5 on the right about 40 degrees, left side is negative. Gaenslen's and Kevin's maneuvers are negative bilaterally. The patient is able to stand but needs help getting up from a seated position using arms of the chair, walks with a slight favoring gait does appear to favor the right lower extremity over the left and again has a cane with her using it in her left hand to ambulate. SKIN: Shows warm and dry, good turgor. No edema. No sores, rashes or bruising throughout. IMPRESSION: Impression: 70-year-old female with long history low back pain worse over the past 3 months increasing radicular fashion in the bilateral lower extremities right greater than left MRI scan lumbar spine as noted Arthritis Hypertension Anticoagulation therapy Plan: Options were discussed with patient including conservative medical management continued physical therapies interventional techniques. Patient elects interventional techniques. We discussed a lumbar epidural steroid injection using description as well as anatomical models described procedure. Patient will wait for clearance from her primary care physician to hold her Eliquis for 3 days prior to procedure. If deemed safe and effective we will have her return for a lumbar epidural steroid injection at that time. In the meantime patient will continue with stretching strength exercise as well as heat and massage therapies at home as well as analgesics as currently. NIGHAT CROWLEY MD May 03, 2021 14:31
== END | disposition home or self-care (01) ==
LOC: PNCL 13:18
PROVIDERS: ATTEND Anesthesiology
DX: M54.50 Low back pain, unspecified (principal); M79.605 Pain in left leg; M79.604 Pain in right leg; I10 Essential (primary) hypertension; M19.90 Unspecified osteoarthritis, unspecified site; I25.10 Atherosclerotic heart disease of native coronary artery without angina pectoris; E78.00 Pure hypercholesterolemia, unspecified; I48.91 Unspecified atrial fibrillation; J44.9 Chronic obstructive pulmonary disease, unspecified; K21.9 Gastro-esophageal reflux disease without esophagitis; F41.9 Anxiety disorder, unspecified; F32.9 Major depressive disorder, single episode, unspecified; Z87.891 Personal history of nicotine dependence; Z90.710 Acquired absence of both cervix and uterus; Z98.890 Other specified postprocedural states; Z79.82 Long term (current) use of aspirin; Z79.899 Other long term (current) drug therapy; Z79.01 Long term (current) use of anticoagulants; Z88.0 Allergy status to penicillin; Z88.8 Allergy status to other drugs, medicaments and biological substances
CPT/HCPCS: G0463

== ENCOUNTER → 2021-05-13 | Outpatient (CLI) | payer OTHER, MEDICAID ==
[~2021-05-13] MED LIST changes: +IOHEXOL 180 MG/ML 10 ML VIAL. ONE; +methylPREDNISolone ACETATE 40 MG/ML VIAL. ONE; +methylPREDNISolone ACETATE 80 MG/ML VIAL. ONE
--- NOTE | 2021-05-13 10:50 | PDOC ---
Progress Note - Pain Clinic Date of Service: DOS: DATE: 05/13/21 TIME: 10:47 Diagnosis: Dx: Lumbar radiculopathy with lumbar degenerative disease and lumbar spinal stenosis History or Present Illness: HPI: 70-year-old female returns status post holding Eliquis for 3 days with pain low back right and left lower extremity posterior gluteus posterior thigh posterior calf patient reports the pain is increasing with walking and standing rated as a 9 on scale 10 is worse over the past week 8 on average 7 its least and 8 today p atient reports is worse with standing weightbearing better with sitting or laying down but is waking her from sleep least 4 hours each night patient reports no bowel or bladder incontinence is off her Eliquis now for 3days to proceed with lumbar epidural steroid injection that we discussed previously. Patient reports no new deficits no new bowel or bladder incontinence. Physical Exam: VS: Blood pressure is 150/78 pulse 80 respirations 18 temperature 98.5 F height 5 feet 8 inches weight is 201 pounds PE: PHYSICAL EXAMINATION: GENERAL: The patient is awake, alert, oriented, appropriate, very pleasant in demeanor HEENT: Shows normocephalic, atraumatic. Extraocular movements are intact and symmetrical. Oral cavity: Mucous membranes moist and pink. NECK: Shows anterior throat supple without palpable lymphadenopathy noted. Swallow reflex symmetrical. CHEST: Shows normal on inspection. Breath sounds are clear bilaterally, no rales or rhonchi. HEART: Shows S1, S2 clear. No murmurs auscultated. ABDOMEN: Soft, nontender, nondistended, obese. No palpable organomegaly is noted. BACK: Shows spine grossly in the midline. Normal-appearing cervical lordotic curvature. There is increased thoracic kyphosis, some flattening of the lumbar lordotic curvature. Lumbar paraspinous muscles show symmetrical on inspection, on palpation shows some moderate tenderness diffusely throughout the upper, middle and lower distribution of the paraspinous muscles without specific trigger points, without radiation of pain. The patient has good rotational motion of the lumbar spine, both laterally as well as extension and flexion without significant difficulty. EXTREMITIES: Lower extremities show deep tendon reflexes 1 in the patellar and tendo calcaneus tendons. Motor exam is 4 on a scale of 5 with right dorsiflexion, extension, quadriceps and hamstring flexion and 5/5 on the left. Peripheral pulses are 1+ posterior tibial. No peripheral edema is noted bilaterally. Lower extremities are warm and dry to touch, equal in color and appearance. SKIN: Shows warm and dry, good turgor. No edema. No sores, rashes or bruising throughout. Procedure: Procedure: Options were discussed with patient. Patient chart was reviewed as her current medication regimen updated current review of systems updated today as well. We will proceed with a lumbar epidural steroid injection today with fluoroscopic guidance. Risks were discussed including but not limited to: Bleeding, infection, possibility of epidural hematoma and subsequent neurological compromise, dural puncture, headaches, spinal cord and/or nerve damage, side effects of steroid medication, and poor results regarding pain control. Patient understands and wished to proceed. Patient return to clinic in approximate 2 weeks for follow-up, was counseled return appointment, activity level, and side effect to be aware of. Medication Injected: Med Injected: Procedure is lumbar epidural steroid injection under local anesthetic using sterile prep and drape at the L4-5 level using C-arm fluoroscopic guidance in both AP and lateral views medications injected is 120 mg Depo-Medrol +10mL preservative-free normal saline and 2 mL contrast- condition at discharge is stable patient tolerated procedure well had no complications. Condition at Discharge: Condition at Discharge: Condition at discharge stable, pain tolerated procedure well and had no complications. NIGHAT CROWLEY MD May 13, 2021 10:50
--- NOTE | 2021-05-13 10:51 | PDOC4 ---
Procedure Note: ICD 10 Code: ICD 10 Code: M54.16 M51.36 M4 8.06 Procedure Note: Patient was consented for lumbar epidural steroid injection fluoroscopic guidance risks were discussed including but not limited to: Bleeding, infection, possibility of epidural hematoma and subsequent neurological compromise, dural puncture, headaches, spinal cord and/or nerve damage, side effects of steroid medication, and poor results regarding pain control. Patient understands and wished to proceed. Procedure is lumbar epidural steroid injection under local anesthetic using sterile prep and drape at the L4-5 level using C-arm fluoroscopic guidance in both AP and lateral views medications injected is 120 mg Depo-Medrol +10mL preservative-free normal saline and 2 mL contrast- condition at discharge is stable patient tolerated procedure well had no complications. NIGHAT CROWLEY MD May 13, 2021 10:51
== END | disposition home or self-care (01) ==
LOC: PNCL 09:57
PROVIDERS: ATTEND Anesthesiology
DX: M51.16 Intervertebral disc disorders with radiculopathy, lumbar region (principal); I25.10 Atherosclerotic heart disease of native coronary artery without angina pectoris; E78.00 Pure hypercholesterolemia, unspecified; I48.91 Unspecified atrial fibrillation; J44.9 Chronic obstructive pulmonary disease, unspecified; K21.9 Gastro-esophageal reflux disease without esophagitis; M19.90 Unspecified osteoarthritis, unspecified site; F41.9 Anxiety disorder, unspecified; F32.9 Major depressive disorder, single episode, unspecified; Z90.710 Acquired absence of both cervix and uterus; Z98.890 Other specified postprocedural states; Z87.891 Personal history of nicotine dependence; Z79.82 Long term (current) use of aspirin; Z88.0 Allergy status to penicillin; Z88.8 Allergy status to other drugs, medicaments and biological substances
CPT/HCPCS: 62323; J1030; J1040; Q9965